=== PATIENT | female | born 1965 | race Caucasian/White ===

== ENCOUNTER → 2021-07-17 13:46 | Outpatient (BNVA) | payer OTHER, SELFPAY | PROVIDERS: PCP Internal Medicine; Visit Provider Physician Assistant | DX: S04.51XA Injury of facial nerve, right side, initial encounter (principal); Y04.2XXA Assault by strike against or bumped into by another person, initial encounter | CPT/HCPCS: 70150; 99203 ==

== ENCOUNTER 2022-06-29 15:19 | Outpatient (REF) | payer BC, SELFPAY ==
--- NOTE | ~2022-06-29 | XR_ITS ---
EXAMINATION: XR CHEST CLINICAL INFORMATION: J30.9 - Allergic rhinitis, unspecified COMPARISON: Chest radiographs 05/23/2012 TECHNIQUE: Frontal view of the chest was obtained. FINDINGS: Clear lungs. No airspace consolidation or groundglass opacity. No hyperinflation. Costophrenic sulci are clear. Heart size normal. Vascularity normal. Hilar and mediastinal contours unremarkable. No acute bony abnormality. XR/XR chest 1V IMPRESSION: Lungs clear.
[2022-06-29 16:38] LABS: MANUAL DIFF FLAG NO
[2022-06-29 17:30] LABS: Basophils Absolute Auto 0.1 X10*3/uL (0.0-0.2); Basophils Percent Auto 0.6 % (0-2); Eosinophils Absolute Auto 0.1 X10*3/uL (0.0-0.4); Eosinophils Percent Auto 1.3 % (0-4); Hematocrit 41.7 % (37.0-47.0); Imm Gran Abs Auto 0.03 X10*3/uL (0.00-0.03); Imm Gran Pct Auto 0.3 % (0.0-0.4); Lymphocytes Absolute Auto 1.9 X10*3/uL (1.2-4.9); Mean Corpuscular HGB Conc 33.6 g/dl (31.0-35.0); Mean Corpuscular Hemoglobin 29.4 pg (27.0-33.0); Mean Corpuscular Volume 87.4 fL (80.0-98.0); Mean Platelet Volume 12.2 fL (9.4-12.3); Monocytes Absolute Auto 0.8 X10*3/uL (0.1-1.2); Monocytes Percent Auto 8.9 % (2-11); Neutrophils Absolute Auto 5.8 x10*3/uL (2.0-8.3); Neutrophils Percent Auto 66.9 % (45-73); Platelet Count 217 X10*3/uL (160-400); Red Blood Count 4.77 X10*6/uL (4.20-5.50); Red Cell Distribution Width 13.4 % (11.0-16.0); White Blood Count 8.7 X10*3/uL (4.8-10.8)
[2022-07-02 15:43] LABS: Immunoglobulin E 26 kU/L (<OR=114)
== END 2022-06-29 15:20 | disposition home or self-care (01) ==
LOC: HO.LAB 15:19
PROVIDERS: PCP Internal Medicine; Visit Provider Internal Medicine
DX: J45.909 Unspecified asthma, uncomplicated (principal)
CPT/HCPCS: 36415; 71045; 82785; 85025

== ENCOUNTER 2022-07-10 15:51 | Outpatient (REF) | payer BC, SELFPAY ==
--- NOTE | 2022-07-10 17:10 | PFT_ITS ---
FLOWS: 1. FEV1 79% of predicted at 2.38 L. 2. FVC 76% of predicted at 2.92 L. 3. FEV1 to FVC ratio 0.81. 4. No bronchodilator response. LUNG VOLUMES: 1. Total lung capacity 86% of predicted at 4.75 L. 2. Residual volume 86% of predicted at 1.75 L. 3. Slow vital capacity 86% of predicted at 3.00 L. 4. Expiratory reserve volume 22% of predicted at 0.4 L. 5. Diffusion capacity is normal. IMPRESSION: No obstructive or restrictive ventilatory defect. No bronchodilator response. Decreased expiratory reserve volume suggests extrathoracic restriction likely secondary to abdominal obesity. Capo Hinds MD AP/MODL / [id number]
== END 2022-07-10 15:52 | disposition home or self-care (01) ==
LOC: HO.RESP 15:51
PROVIDERS: PCP Internal Medicine; Visit Provider Internal Medicine
DX: J45.909 Unspecified asthma, uncomplicated (principal)
CPT/HCPCS: 94060; 94727; 94729

== ENCOUNTER → 2022-08-17 15:54 | Outpatient (BNVA) | payer BC, SELFPAY | PROVIDERS: PCP Internal Medicine; Visit Provider Internal Medicine | DX: J45.909 Unspecified asthma, uncomplicated (principal) ==

== ENCOUNTER 2024-09-24 14:09 | Emergency (ER) | payer BC, SELFPAY ==
--- NOTE | ~2024-09-24 | CT_ITS ---
CLINICAL HISTORY: periumbilical abd pain, nausea CT abdomen and pelvis with IV contrast. COMPARISON: None FINDINGS: Partially visualized lung bases are unremarkable. Cholecystectomy. Liver is enlarged with right lobe measuring 20.6 cm. Hepatic steatosis. Normal spleen. Normal pancreas. Normal adrenal glands. Symmetric renal enhancement. No hydronephrosis. Normal appendix. Mild colonic stool burden. No bowel obstruction. No mesenteric or retroperitoneal lymphadenopathy. Mild aortoiliac atherosclerotic vascular calcifications. Normal appearance of the urinary bladder. Retroverted uterus. No adnexal mass. Moderate lower lumbar spondylosis. No acute fracture or suspicious bone lesion. Tiny fat containing umbilical hernia with fascial defect measuring 0.5 x 0.5 cm. No surrounding inflammatory changes. IMPRESSION: 1. Tiny fat containing hernia with fascial defect measuring 0.5 x 0.5 cm. No surrounding inflammatory changes. 2. Hepatomegaly with hepatic steatosis. 3. No evidence of appendicitis. No bowel obstruction. This document has been electronically signed by: Delvin Smith MD on 09/24/2024 17:11:25
[2024-09-24 14:17] VITALS: BP 135/70; PULSE 96; RESP 18; TEMP 36.5; O2SAT 96; BMI 32.5
--- NOTE | 2024-09-24 14:17 | ED.GENADULT ---
HPI - General Adult General Chief complaint: Abdominal Pain Stated complaint: abd pain Time Seen by Provider: 09/24/24 14:46 Source: patient Mode of arrival: ambulatory Limitations: no limitations History of Present Illness ED Provider: ANITA CHAVEZ PA-C HPI narrative: 58 year old female with pmhx significant for asthma, allergic rhinitis presents to the ED today for evaluation of abdominal pain x 24 hours. She reports pain around her umbilicus radiating to her right abdomen and around to her back that began while seated at her niece's program yesterday. Pain has been a constant 6/10 since onset. No clear exacerbating or relieving factors. Reports taking Tylenol last night without relief. States she is typically nauseous at baseline. No worsening nausea. No vomiting. Reports history of decreased appetite, states she can go a day or 2 without eating. No change to PO intake. Her GI doctor had suspicion for celiac disease so she has since cut out a good majority of her regular foods. She also had recent EDG/ colonoscopy done 2 weeks ago. Reports findings of small hiatal hernia, internal hemorrhoids and diverticulosis without evidence of diverticulitis. Reports normal BMs. Last BM this morning. Denies vomiting, diarrhea, constipation, urinary symptoms, fever/chills. Abdominal surgeries include cholecystectomy and tubal ligation. Related Data Home Medications ?Medication ?Instructions ?Recorded ?Confirmed albuterol sulfate 90 mcg/actuation 2 puff inhalation DAILY 06/29/22 aerosol inhaler atorvastatin 40 mg tablet 40 mg PO DAILY 06/29/22 citalopram 20 mg tablet 30 mg PO DAILY 06/29/22 inhalational spacing device #1 ea 06/29/22 (Aerochamber Plus Flow-Vu) valsartan 320 1 tab PO DAILY 06/29/22 mg-hydrochlorothiazide 25 mg tablet Previous Rx's ?Medication ?Instructions ?Recorded montelukast 10 mg tablet 10 mg PO BEDTIME #30 tabs 05/03/23 Allergies Allergy/AdvReac Type Severity Reaction Status Date / Time morphine [MORPHINE] Allergy Intermediate HIVES Verified 09/24/24 14:20 aspirin [ASPIRIN] Allergy Unknown HIVES Verified 09/24/24 14:20 celecoxib [Celebrex] Allergy Unknown swelling Verified 09/24/24 14:20 of lips/tongue gluten [GLUTEN] Allergy Unknown UNKNOWN Verified 09/24/24 14:20 latex [LATEX] Allergy Unknown HIVES Verified 09/24/24 14:20 pregabalin [From LYRICA] Allergy Unknown SWELLING, Verified 09/24/24 14:20 anaphylaxis Latex Gloves Allergy Unknown hives Uncoded 08/17/22 16:09 Review of Systems Review of Systems: Yes all other systems are reviewed and are negative [facility] Past Medical History Attestation statement: The following information was validated with the patient. Source: old records reviewed and nursing notes reviewed Medical History Allergic rhinitis Asthma Social History Social History Patient Tobacco Use Status: Former Tobacco user Smoked in Last 30 Days: No Use of substances other than those prescribed or required for medical reasons: No Advance Directives: No Advance Directives Information Provided: No Physical Exam ED Vital Signs: Vital Signs - 24 hr 09/24/24 14:17 09/24/24 15:01 09/24/24 16:06 Temperature 97.7 F 98.3 F 98.7 F Pulse Rate 96 91 87 Respiratory Rate 18 14 16 Blood Pressure 135/70 147/75 H 139/71 Pulse Oximetry 96 95 96 Oxygen Delivery Method Room Air Room Air Room Air BMI result Body Mass Index 32.5 Afebrile. Hypertensive to 147/75 mmHg. Not hypoxic General: Well appearing, in no acute distress. Skin: Warm, dry, intact. No rashes or lesions. Head: Normocephalic, atraumatic. EENT: Hearing is intact b/l. Conjunctiva clear. Sclera is anicteric. Neck: Supple without LAD. Cardiac: Chest wall symmetric. RRR. Lungs: Normal respiratory effort without accessory muscle use. CTA bilaterally. Abdomen: +soft, nondistended, mildly tender to palpation of periumbilical region on deep palpation only. no palpable mass. No rebound or guarding. Active bowel sounds x4. Negative McBurney point tenderness. Negative Rovsing sign. No CVAT. Back: No midline spinous or paraspinal tenderness. No step off deformity. Ext: Upper and lower extremities atraumatic, without tenderness, deformity, swelling or erythema Neuro: AOx3. Normal speech. Ambulating with steady gait. Course Course Course Narrative: RME performed by Delia Barnard PA-C. Patient is a 58 year old assigned female at presenting to the emergency department with right sided abdominal pain. Patient states that she has had pain since yesterday and it has not resolved. Detailed physical exam and review of systems are deferred to the public address system operator. Labs and swabs ordered. Patient placed back in the waiting room pending room availability and results. Reevaluation(s) Reevaluation #1: 1552 -- CBC without leukocytosis or left shift. No anemia. H&H stable. Chemistry without acute electrolyte abnormality requiring intervention. No DAVID. Random glucose 170. Liver function appears to be around baseline. Patient tells me that she has a history of chronically elevated liver enzymes. Negative COVID, flu, RSV. Urine showing large amount of leukocyte esterase, over 50 WBCs, no urine bacteria. Patient does not endorse any urinary symptoms. will await culture to treat for UTI. > given tenderness around periumbilical region, will obtain imaging to further investigate etiology of pain. Patient reports anxiety surrounding CT scan. Valium ordered - patient agreeable. 0 -- CT abdomen/pelvis showing tiny fat containing umbilical hernia with fascial defect measuring 0.5 x 0.5 cm without surrounding inflammatory changes. Hepatomegaly with hepatic steatosis consistent with labs. No evidence of appendicitis, no bowel obstruction. > discussed workup results with patient. Will provide her with a referral to General surgery. She is agreeable. Advised Tylenol/Motrin at home for discomfort. Patient has remained stable throughout ED visit today. Discussed worrisome signs and symptoms and when to return to the ED. All questions answered at this time. Patient is agreeable with disposition and stable for discharge. Medications Administered Discontinued Medications Generic Name Dose Route Start Last Admin Trade Name Freq PRN Reason Stop Dose Admin Diazepam 5 mg 09/24/24 15:32 09/24/24 16:18 Diazepam 5 Mg Tablet PO 09/24/24 15:33 5 mg ONCE ONE Administration Sodium Chloride 1,000 mls @ 999 mls/hr 09/24/24 15:45 09/24/24 16:18 Ns IV 09/24/24 16:45 999 mls/hr .Q1H1M DOMINICK Administration Iohexol 100 ml 09/24/24 16:01 09/24/24 16:02 Iohexol 350 Mg/Ml 100 Ml Infus..Btl IV 09/24/24 16:02 85 ml ONCE ONE Administration Ondansetron HCl 4 mg 09/24/24 15:32 09/24/24 16:18 Ondansetron Hcl 4 Mg/2 Ml Vial IVPUSH 09/24/24 15:33 4 mg ONCE ONE Administration Medical Decision Making Medical Decision Making [facility] Narrative: 58 year old female with pmhx significant for asthma, allergic rhinitis presents to the ED today for evaluation of abdominal pain x 24 hours. she is well appearing, lying comfortably on the exam bed. in NAD. on exam, abdomen is soft, nondistended, mildly tender to palpation of periumbilical region on deep palpation only. no palpable mass. No rebound or guarding. Active bowel sounds x4. Negative McBurney point tenderness. Negative Rovsing sign. No CVAT. Differential diagnoses: appendicitis, diverticulitis, diverticulosis, colitis, UTI, constipation Abdominal exam without peritoneal signs. No evidence of acute abdomen at this time. Well appearing. Low suspicion for acute hepatobiliary disease (including acute cholecystitis), acute infectious processes (pneumonia, hepatitis, pyelonephritis, PID, TOA), vascular catastrophe, bowel obstruction or viscus perforation, ovarian cyst/ rupture/ torsion, ectopic. Presentation not consistent with other acute, emergent causes of abdominal pain at this time. Plan: labs, UA, CT AP, pain control, fluids, serial reassessment Differential Diagnosis Differential Diagnoses: The differential diagnosis associated with the presentation includes as above. Admission/Observation Not indicated Lab Data [facility] Lab Attestation statement: I reviewed the patient's lab results. as above. 09/24/24 14:31 09/24/24 14:31 Labs: Lab Results 09/24/24 09/24/24 Range/Units 14:31 14:32 WBC 7.9 (4.8-10.8) X10*3/uL RBC 4.76 (4.20-5.50) X10*6/uL Hgb 14.2 (12.0-16.0) g/dl Hct 41.0 (37.0-47.0) % MCV 86.1 (80.0-98.0) fL MCH 29.8 (27.0-33.0) pg MCHC 34.6 (31.0-35.0) g/dl RDW 13.6 (11.0-16.0) % Plt Count 195 (160-400) X10*3/uL MPV 11.7 (9.4-12.3) fL Immature Gran % (Auto) 0.4 (0.0-0.4) % Neut % (Auto) 61.4 (45-73) % Lymph % (Auto) 29.4 (20-40) % Grayson % (Auto) 6.6 (2-11) % Eos % (Auto) 1.3 (0-4) % Baso % (Auto) 0.9 (0-2) % Lymph # (Auto) 2.3 (1.2-4.9) X10*3/uL Grayson # (Auto) 0.5 (0.1-1.2) X10*3/uL Eos # (Auto) 0.1 (0.0-0.4) X10*3/uL Baso # (Auto) 0.1 (0.0-0.2) X10*3/uL Abs Immat Gran (auto) 0.03 (0.00-0.03) X10*3/uL Absolute Neuts (auto) 4.9 (2.0-8.3) x10*3/uL Absolute Nucleated RBC 0.000 (0.0-0.012) X10*3/uL Nucleated RBC % (auto) 0.0 (0.0-0.2) /100WBC Sodium 143 (135-145) mmol/L Potassium 3.7 (3.3-5.1) mmol/L Chloride 102 (96-108) mmol/L Carbon Dioxide 32 H (22-29) mmol/L Anion Gap 13 (12-20) BUN 12 (9-16) mg/dL Creatinine 0.72 (0.5-1.4) mg/dL Estim Creat Clear Calc 102.7 Estimated GFR > 60 Random Glucose 170 H (60-115) mg/dL Calcium 9.8 (8.4-10.2) mg/dL Magnesium 2.1 (1.6-2.6) mg/dL Total Bilirubin 0.4 (0.0-1.0) mg/dL AST 78 H (5-31) U/L ALT 108 H (0-31) U/L Alkaline Phosphatase 64 (39-117) U/L Total Protein 7.2 (6.5-8.0) g/dL Albumin 4.3 (3.5-5.0) g/dL Lipase 45 (8-78) U/L Urine Color Yellow Urine Appearance Turbid Urine pH 8.0 (5.0-9.0) Ur Specific Nova 1.015 (1.005-1.025) Urine Protein Trace (Neg-Trace) mg/dL Urine Glucose (UA) Negative (Negative) mg/dL Urine Ketones Negative (Negative) mg/dL Urine Blood Negative (Negative) Urine Nitrite Negative (Negative) Ur Leukocyte Esterase Large (3+) H (Negative) Urine RBC 0-2 (0-2) /HPF Urine WBC >50 H (0-5) /HPF Ur Squamous Epith Cells 3-5 (0-2) /HPF Urine Bacteria None Seen (None Seen) Hyaline Casts 0-2 (0-2) /LPF Influenza Type A (PCR) NEGATIVE (Negative) Influenza Type B (PCR) NEGATIVE (Negative) RSV RNA Qual (PCR) NEGATIVE (Negative) SARS-CoV-2 RNA (RT-PCR) NEGATIVE (Negative) Independent Interpretation I performed an independent interpretation of an: CT Scan Interpretation: CT abdomen/pelvis without bowel obstruction Radiology Impression Discussion of test interpretation with radiology: I have reviewed the radiologist's reading. Radiologist Impression: Procedure(s): CT abdomen pelvis w IV con Accession Number(s): [id number] cc: LO BAXTER MD; Anita Chavez~ Report Number: [id number]: Total DLP = 698.00 mGy-cm CLINICAL HISTORY: periumbilical abd pain, nausea CT abdomen and pelvis with IV contrast. COMPARISON: None FINDINGS: Partially visualized lung bases are unremarkable. Cholecystectomy. Liver is enlarged with right lobe measuring 20.6 cm. Hepatic steatosis. Normal spleen. Normal pancreas. Normal adrenal glands. Symmetric renal enhancement. No hydronephrosis. Normal appendix. Mild colonic stool burden. No bowel obstruction. No mesenteric or retroperitoneal lymphadenopathy. Mild aortoiliac atherosclerotic vascular calcifications. Normal appearance of the urinary bladder. Retroverted uterus. No adnexal mass. Moderate lower lumbar spondylosis. No acute fracture or suspicious bone lesion. Tiny fat containing umbilical hernia with fascial defect measuring 0.5 x 0.5 cm. No surrounding inflammatory changes. IMPRESSION: 1. Tiny fat containing hernia with fascial defect measuring 0.5 x 0.5 cm. No surrounding inflammatory changes. 2. Hepatomegaly with hepatic steatosis. 3. No evidence of appendicitis. No bowel obstruction. This document has been electronically signed by: Delvin Smith MD on 09/24/2024 17:11:25 External Record Review External record reviewed: Inpatient record Prescription Management I considered prescription management with: Pain Medication Social Determinants Patient?s care significantly limited by Social Determinants of Health including: Other Social Determinant of Health Critical Care Time Critical Care Time Critical Care Time: No Discharge Plan Discharge Clinical Impression: Umbilical hernia Patient Disposition: Home, Self-Care Instructions: Umbilical Hernia (ED) Additional Instructions: You were evaluated in the ED today for abdominal pain. Your blood work is reassuring. The CT scan of your abdomen shows a small umbilical hernia in the area of your discomfort: IMPRESSION: 1. Tiny fat containing hernia with fascial defect measuring 0.5 x 0.5 cm. No surrounding inflammatory changes. 2. Hepatomegaly with hepatic steatosis. 3. No evidence of appendicitis. No bowel obstruction. You may take Motrin and Tylenol at home for pain/discomfort. I am giving him a referral to General surgery for outpatient follow-up. Call them to establish care. They will not call you. As discussed, return with any new or worsening symptoms such as intractable pain, vomiting. In the case of an emergency call 911. Prescriptions: No Action montelukast 10 mg tablet 10 mg PO BEDTIME Qty: 30 3RF atorvastatin 40 mg tablet 40 mg PO DAILY citalopram 20 mg tablet 30 mg PO DAILY valsartan-hydrochlorothiazide 320-25 mg tablet 1 tab PO DAILY (DME) Aerochamber Plus Flow-Vu Spacer See Rx Instructions .ROUTE DIRECTED Qty: 1 Rx Instructions: As directed albuterol sulfate 90 mcg/actuation HFA aerosol inhaler 2 puff inhalation DAILY Referrals: [facility] [place] General Surgeons [Provider Group] - 3 days (Tiny fat containing hernia with fascial defect measuring 0.5 x 0.5 cm. No surrounding inflammatory changes.) Stand Alone Forms: Work/School Release Interventions: ED Discharge Assessment Last Done: 09/24/24 17:48 Discharge Date/Time: 09/24/24 17:49 Print Language: Greenlandic
--- NOTE | 2024-09-24 14:28 | PC.NURSE ---
pt incontinent of urine - pericare performed. new brief placed.
[2024-09-24 14:48] LABS: MANUAL DIFF FLAG NO
[2024-09-24 14:50] LABS: Basophils Absolute Auto 0.1 X10*3/uL (0.0-0.2); Basophils Percent Auto 0.9 % (0-2); Eosinophils Absolute Auto 0.1 X10*3/uL (0.0-0.4); Eosinophils Percent Auto 1.3 % (0-4); Hemoglobin 14.2 g/dl (12.0-16.0); Imm Gran Abs Auto 0.03 X10*3/uL (0.00-0.03); Imm Gran Pct Auto 0.4 % (0.0-0.4); Lymphocytes Absolute Auto 2.3 X10*3/uL (1.2-4.9); Lymphocytes Percent Auto 29.4 % (20-40); Mean Corpuscular HGB Conc 34.6 g/dl (31.0-35.0); Mean Corpuscular Hemoglobin 29.8 pg (27.0-33.0); Mean Corpuscular Volume 86.1 fL (80.0-98.0); Mean Platelet Volume 11.7 fL (9.4-12.3); Monocytes Absolute Auto 0.5 X10*3/uL (0.1-1.2); Monocytes Percent Auto 6.6 % (2-11); Neutrophils Absolute Auto 4.9 x10*3/uL (2.0-8.3); Neutrophils Percent Auto 61.4 % (45-73); Platelet Count 195 X10*3/uL (160-400); Red Blood Count 4.76 X10*6/uL (4.20-5.50); Red Cell Distribution Width 13.6 % (11.0-16.0); White Blood Count 7.9 X10*3/uL (4.8-10.8)
[2024-09-24 14:51] LABS: Appearance Urine Turbid; Color Urine Yellow; Glucose Urine UA Negative (Negative); Leukocyte Esterase Urine Large (3+) (Negative); Nitrite Urine Negative (Negative); Specific Gravity - Urine 1.015 (1.005-1.025); UMIC TRIGGER UACC YES; Urine Blood Negative (Negative); Urine Ketones Negative (Negative); Urine Protein Trace mg/dL (Neg-Trace)
[2024-09-24 15:01] VITALS: BP 147/75; PULSE 91; RESP 14; TEMP 36.8; O2SAT 95
[2024-09-24 15:04] LABS: Bacteria Urine None Seen (None Seen); Hyaline Casts Urine 0-2 /LPF (0-2); RBC Urine 0-2 /HPF (0-2); UACC Culture Trigger YES; WBC Urine >50 /HPF (0-5)
--- NOTE | 2024-09-24 15:06 | PC.NURSE ---
Patient A&O x 4. Paptient presents to ED from home c/o RLQ abdominal pain. Pain rated 6/10. Patient nauseous but no V/D. Abdomen pain started yesterday, + Bowel sounds. Abdomen soft, slightly tender in RLQ. Patient reports last BM this morning, no blood noted. Denies urinary symptoms. Denies fever/chills, Denies injury. VSS and up to date. Blood and urine collected in triage and sent to lab. Play of care on going.
[2024-09-24 15:07] LABS: Alanine Aminotransferase 108 U/L (0-31); Albumin Level 4.3 g/dL (3.5-5.0); Anion Gap 13 (12-20); Aspartate Amino Transferase 78 U/L (5-31); Bilirubin Total 0.4 mg/dL (0.0-1.0); Blood Urea Nitrogen 12 mg/dL (9-16); Calcium 9.8 mg/dL (8.4-10.2); Carbon Dioxide 32 mmol/L (22-29); Chloride 102 mmol/L (96-108); Creatinine Clr Calc Pharmacy 102.7; Estimated Glomerular Filt Rate > 60; Glucose Random 170 mg/dL (60-115); Magnesium 2.1 mg/dL (1.6-2.6); Potassium 3.7 mmol/L (3.3-5.1); Sodium 143 mmol/L (135-145); Total Protein 7.2 g/dL (6.5-8.0)
--- NOTE | 2024-09-24 15:12 | PC.NURSE ---
report given to VEE long at this time. pt [place] [facility] [place]
--- OUTSIDE RECORDS SUMMARY | 2024-09-24 15:17 | XMS_ITS | Clinical Summary ---
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 retroflexion. The examined duodenum was normal. Biopsies for histology were taken with a cold forceps for evaluation of celiac disease. Procedure Code(s): --- Professional --- 42333, Esophagogastroduodenoscopy, flexible, transoral; with biopsy, single or multiple Diagnosis Code(s): --- Professional --- K44.9, Diaphragmatic hernia without obstruction or gangrene CPT copyright 2020 [employer]. All rights reserved. The codes documented in this report are preliminary and upon kosher sealer reviewmay be revised to meet current compliance requirements. Latoya Boss MD 09/11/2024 8:49:35 AM This report has been signed electronically.Latoya Boss MD Number of Addenda: 0 Note Initiated On: 09/11/2024 8:38 AM Scope In: Scope Out: Endoscopy Department at [facility] - [address] [place] [id number] IMPRESSION: - Small hiatal hernia. - Normal mucosa was found in the entireesophagus. - Normal stomach. Biopsied. - Normal examined duodenum. Biopsied. Recommendation: - Await pathology results. us Jm Javier MD GI~PROCEDURE ORDERABLES Fin al Result * Tissue exam (09/11/2024 8:45 AM EDT) Final Diagnosis A. Small Intestine, Duodenum, biopsies: - Duodenal mucosa with preserved villi and no specific pathologic changes. - Negative for increased intraepithelial lymphocytes. B. Stomach, gastric biopsies: - Gastric antral mucosa with mild reactive changes. - Gastric oxyntic mucosa with no specific pathologic changes. - No Helicobacter pylori organisms are morphologically identified. 09/12/2024 12:45 PM EDT [facility] Gross Description A. Small Intestine, Duodenum, biopsies: Labeled duodenum biopsy . Received in formalin are five irregular burt mucosal tissue fragments, ranging from 0.1 cm to 0.3 cm in greatest dimension, which are wrapped in paper and submitted in toto in one cassette, five pieces, multiple levels on one slide. B. Stomach, gastric biopsies: Labeled stomach gastric . Received in formalin are four irregular burt mucosal tissue fragments, each measuring approximately 0.3 cm in greatest dimension, which are wrapped in paper and submitted in toto in one cassette, four pieces, multiple levels on one slide. VIKTOR 09/12/2024 12:45 PM EDT [facility] Disclaimer Unless otherwise specified, all tissue is 10% NB formalin fixed and paraffin embedded. 09/12/2024 12:45 PM EDT [facility] Tissue Stomach structure / Unknown 09/11/2024 8:45 AM EDT 09/11/2024 10:08 AM EDT Tissue specimen (specimen) Stomach structure / Unknown 09/11/2024 8:45 AM EDT 09/11/2024 10:08 AM EDT Latoya Boss MD LAB PATHOLOGY ORDERABLES Final Result [facility] [address] [place] [address], from Last [address] [facility] Care Teams Rn Cardiovascular Relationship Specialty Start Date End Date Tarik Roche MD [address] PCP - General Internal Medicine 06/19/24
--- OUTSIDE RECORDS SUMMARY | 2024-09-24 15:17 | XMS_ITS | Encounter Summary ---
Author Organization [facility] Address [address] [place] [address] Care Team Providers Care Buggy Runner Name Role Phone Tarik Roche MD Primary Care Provider [phone] Encounter Details Date Type Department Care Team ([facility] st Contact Info) Description 08/23/2024 Telephone Gastroenterology - [address] [phone] Perry Javier MD [address] [address] Social History Tobacco Use Types Packs/Day Years Used Date Smoking Tobacco: Former Cigarettes Smokeless Tobacco: Former Alcohol Use Standard Drinks/Week Comments Not Currently 0 (1 standard drink = 0.6 oz pur e alcohol) Interpersonal Safety Answer Date Record ed Physical Abuse 09/11/2024 Verbal Abuse 09/11/2024 Comments Unknown Sex and Gender Information Value Date Recorded Sex Assigned at Not on file Legal Sex Female 5:02 PM EST Gender Identity Not on file Sexual Orientation Not on file documented as of this encounter Progress Notes * Leah Lopez - 08/23/2024 3:11 PM EDT Pt was seen in the office today with no insurance referral and is now scheduled for c&e. Fax sent to pcp to obtain insurance referral. Chiquita Aquino 1965 [facility]. PT SEEN IN THE OFFICE TODAY 08/23/2024 AND SCHEDULED FOR COLONOSCOPY 08/30/24 130PM PERRY JAVIER. documented in this encounter Plan of Treatment Upcoming Encounters Date Type Department Care Team (Late st Contact Info) Description 09/25/2024 3:30 PM EDT Office Visit Gastroenterology - [address] [place] [address] Sherley Cruz PA [address] [place] [address] documented as of this encounter Visit Diagnoses Not on filedocumented in this encounter Care Teams Buggy Runner Relationship Specialty Start Date End Date Tarik Roche MD [address] [place], [place] PCP - General Internal Medicine 06/19/24 documented as of this encounter
--- OUTSIDE RECORDS SUMMARY | 2024-09-24 15:17 | XMS_ITS | Data Portability ---
Author Organization [facility] Address [address] [place] [address] Care Team Providers Care Labor Economist Name Role Phone ZELALEM SMITH Referring Provider LO BAXTER Primary Care Provider Assessment Encounter Date Assessment Date Assessment LastModified by Organization Details LastModified Time 12/29/2017 12/29/2017 Chiquita Aquino is a 52 year old woman with low back pain radiating into the left lower extremity. On exam ,she has pain on flexion. Straight leg raising test is positive on the left. Decreased strength in left EHL. MRI Lumbar spine shows discogenic degenerative changes at L5-S1 with slight retrolisthesis at this level and a small central disc protrusion with minimal concentric disc osteophyte complex and mild facet arthrosis bilaterally, with postoperative changes on the left. No significant canal or neural foraminal compromise. Minimal disc bulging at L4-5 with a small right lateral enhancing annular fissure. Otherwise unremarkable exam. Trial of Lumbar epidural steroid injections under fluoroscopic guidance was recommended. The risks and benefits of the procedure were discussed in detail. She wishes to proceed. An appointment has been booked for the same. She needs a pick up driver on the day of the procedure. [email or web address] Not available 12/29/2017 11:40:30 01/25/2018 01/25/2018 Chiquita Aquino is a 52 year old woman with low back pain radiating into the left lower extremity. On exam ,she has pain on flexion. Straight leg raising test is positive on the left. Decreased strength in left EHL. MRI Lumbar spine shows discogenic degenerative changes at L5-S1 with slight retrolisthesis at this level and a small central disc protrusion with minimal concentric disc osteophyte complex and mild facet arthrosis bilaterally, with postoperative changes on the left. No significant canal or neural foraminal compromise. Minimal disc bulging at L4-5 with a small right lateral enhancing annular fissure. She is here for a trial of Lumbar epidural steroid injections under fluoroscopic guidance . The risks and benefits of the procedure were discussed in detail. She wishes to proceed. She needs to follow up in four weeks. [email or web address] Not available 01/25/2018 09:00:47 02/24/2018 02/24/2018 Chiquita Aquino is a 52 year old woman with low back pain radiating into the left lower extremity. She is here for a follow up after a lumbar epidural steroid injection under fluoroscopic guidance. She reports 80-90% pain benefit for three weeks with a slow return of pain. On exam ,she has pain on flexion. Straight leg raising test is positive on the left. Decreased strength in left EHL. MRI Lumbar spine shows discogenic degenerative changes at L5-S1 with slight retrolisthesis at this level and a small central disc protrusion with minimal concentric disc osteophyte complex and mild facet arthrosis bilaterally, with postoperative changes on the left. No significant canal or neural foraminal compromise. Minimal disc bulging at L4-5 with a small right lateral enhancing annular fissure. Otherwise unremarkable exam. Repeat Lumbar epidural steroid injections under fluoroscopic guidance was recommended. The risks and benefits of the procedure were discussed in detail. She wishes to proceed. An appointment has been booked for the same. She needs a pick up driver on the day of the procedure. tmanikantan Not available 02/25/2018 10:59:01 03/29/2018 03/29/2018 Chiquita Aquino is a 52 year old woman with low back pain radiating into the left lower extremity. On exam ,she has pain on flexion. Straight leg raising test is positive on the left. Decreased strength in left EHL. MRI Lumbar spine shows discogenic degenerative changes at L5-S1 with slight retrolisthesis at this level and a small central disc protrusion with minimal concentric disc osteophyte complex and mild facet arthrosis bilaterally, with postoperative changes on the left. No significant canal or neural foraminal compromise. Minimal disc bulging at L4-5 with a small right lateral enhancing annular fissure. She is here for a repeat Lumbar epidural steroid injections under fluoroscopic guidance . The risks and benefits of the procedure were discussed in detail. She wishes to proceed. She will follow up as needed. [email or web address] Not available 03/31/2018 11:33:52 Plan of Treatment Reminders Order Date Submit Date Provider Last Modified By Organization Details Last Modified Time Details Appointments None record ed. Lab None record ed. Referral None record ed. Procedures None record ed. Surgeries None record ed. Imaging None record ed. Medication Orders None record ed. Patient TargetsNo targets recorded. Patient Instructions Encounter Date Encounter Id Patient Instructions Last Modified By Organization Details Last Modified Time 01/25/2018 [id number] She was advised against bed rest lasting longer than four days and to continue activities as tolerated. [email or web address] Not available 01/25/2018 09:00:05 02/24/2018 [id number] She was advised against bed rest lasting longer than four days and to continue activities as tolerated. [email or web address] Not available 02/25/2018 10:58:38 03/29/2018 [id number] She was advised against bed rest lasting longer than four days and to continue activities as tolerated. [email or web address] Not available 03/31/2018 11:31:56 Reason for Referral None Reported. Problems Name Problem SNOMED Code Status Onset Date Resolution Date Notes Provider Name and Address Organization Details Recorded Time Lumbar post-laminecto my syndrome [id number] Elmer mosquera MD [address] , [address], [facility] [place], [address], [place] [facility] 8 08:47:44 Lumbar radiculopathy 170167406 Elmer mosquera MD [address] , [address], [place], [address], [place] [facility] 8 08:47:59 Lumbosacral spondylosis without myelopathy [id number] Elmer mosquera MD [address] , [address], [place], [address], [place] [facility] 8 08:48:13 Degeneration of lumbar intervertebral disc [id number] Elmer mosquera MD [address] , [address], [facility] [place], [address], [place] [facility] 8 08:48:22 Problem Notes None recorded. Procedures Surgical History Date Name Laterality Status Provider Name and Address Organization Details Recorded Time 03/29/20 18 Lumbar Epidural steroid injection under fluoroscopic guidance completed Madan Clinton MD [address] , [address], [place], [address], [place] [facility] 03/31/2018 11:32:59 01/26/20 18 Lumbar Epidural steroid injection under fluoroscopic guidance completed Madan Clinton MD [address] , [address], [place], [address], [place] [facility] 01/25/2018 08:59:42 Back Surgery completed Charletteserina Borja [place] [facility] 12/29/2017 09:49:05 Cholecystectomy completed Charlette Borja [place] [facility] 12/29/2017 09:49:22 Other completed Charlette Perezzier [place] [facility] 12/29/2017 09:49:50 Imaging Results None recorded. Procedure Notes None recorded. Medical Equipment None Reported. Allergies Allergen ID Allergen Name Allergen Category Reaction Reaction Severity Criticality Documentation Date Start Date Code Code System Note Provider Name and Address Organization Details Recorded Time 15283 latex environme nt,medica tion hives Not available Not available 12/29/2017 06319 91 RxNorm Charlette Perezmark mccarty, [place] [facility] 8 09:39:46 55805 aspirin medicatio n hives Not available Not available 12/29/2017 1191 RxNorm Charlette Borjamark mccarty, [place] [facility] 8 09:39:59 99106 morphine medicatio n hives Not available Not available 12/29/2017 7052 RxNorm Hot flash Charlette Jonh mccarty, [place] [facility] 8 09:40:54 16364 Lyrica medicatio n facial swelling Not available Not available 12/29/2017 46558 1 RxNorm Charlette Perezzier lul, [place] [facility] 8 09:41:06 Medications Name Sig Start Date Stop Date Status Note LastModified by Organization Details LastModified Time atorvastat in 40 mg tablet active Not Available Not Available Not Available prednisone 10 mg tablet 12/29 completed Not Available Not Available Not Available tizanidine 4 mg tablet 03/29 completed Not Available Not Available Not Available metoprolol succinate ER 100 mg tablet,ext ended release 24 hr 2 tabs daily active Not Available Not Available No t Available acetaminop hen 300 mg-codeine 30 mg tablet 12/29 completed Not Available Not Available Not Available chlorthali done 25 mg tablet active Not Available Not Available Not Available Zantac 150 mg tablet Take 1 tablet twice a day by oral route. active as needed Not Available Not Available Not Available lorazepam 2 mg tablet active Not Available Not Available Not Available gabapentin 300 mg capsule 1tab @ bedtime 03/29 completed Not Available Not Available Not Available lorazepam 1 mg tablet 12/29 completed Not Available Not Available Not Available cyclobenza deja 5 mg tablet 12/29 completed Not Available Not Available Not Available ProAir HFA 90 mcg/actuat ion aerosol inhaler active Not Available Not Available Not Available EpiPen 2-Ray 0.3 mg/0.3 mL injection, auto-injec tor active Not Available Not Available Not Available Fluvirin 0170-5233 (PF) 45 mcg(15 mcg x3)/0.5 mL intramuscu lar syringe ADM 0.5ML IM UTD 12/29 completed Not Available Not Available Not Available cannabidio l (CBD) oral oil Take by oral route. active Not Available Not Available No t Available Vitals Date Recorded Heart rate Oxygen saturation Oxygen saturation in Arterial blood by Pulse oximetry Body height Body mass index (BMI) Body weight Systolic blood pressure Diastolic blood pressure Provider Name and Address Organization Details Last Updated DateTime 8 59 /min 98 % 98 % 170.18 cm 29.3 kg/m2 59724.7 7 g 139 mm[Hg] 77 mm[Hg] Charlette Garcia [facility] 8 09:37:56 Date Recorded Body height Oxygen saturation Oxygen saturation in Arterial blood by Pulse oximetry Heart rate Systolic blood pressure Diastolic blood pressure Provider Name and Address Organization Details Last Updated DateTime 8 170.18 cm 98 % 98 % 84 /min 131 mm[Hg] 86 mm[Hg] Charlette aGrcia [facility] 8 08:36:11 Date Recorded Body height Heart rate Oxygen saturation Oxygen saturation in Arterial blood by Pulse oximetry Systolic blood pressure Diastolic blood pressure Provider Name and Address Organization Details Last Updated DateTime 8 170.18 cm 64 /min 96 % 96 % 148 mm[Hg] 77 mm[Hg] Madan mosquera MD [facility] , [address], [place], [address], [place] [facility] 8 15:30:32 Date Recorded Pain severity - 0-10 verbal numeric rating [Score] - Reported Provider Name and Address Organization Details Last Updated DateTime 02/24/2018 4 Not Available [facility] 8 05:02:19 Date Recorded Body height Heart rate Oxygen saturation Oxygen saturation in Arterial blood by Pulse oximetry Systolic blood pressure Diastolic blood pressure Provider Name and Address Organization Details Last Updated DateTime 8 170.18 cm 70 /min 97 % 97 % 170 mm[Hg] 82 mm[Hg] Charlette Perezzier [place] [facility] 8 15:47:45 Social History Question Answer Notes LastModified by Organizat ion Details LastModified Time Tobacco Smoking Status Never Smoker Quit x 18 years Not Available [facility] 03/01/2020 03:16:11 What Is Your Level Of Alcohol Consumption? 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 No [id number] Information not available 03/01/2020 Education 4 Year College Bachelors [email or web address] Information not available 12/29/2017 What Is Your Occupation? Teacher [id number] Information not available 03/01/2020 Live Alone Or With Others? With Others And Son Information not available 12/29/2017 Marital Status Informatio n not available 12/29/2017 What Was The Date Of Your Most Recent Tobacco Screening? 03/31/2018 [id number] Information not available 03/01/2020 How Many Years Have You Smoked Tobacco? 10 [id number] Information not available 03/01/2020 Sex: Unknown Functional Status None recorded. Mental Status None recorded. Family History Relationship Description Onset Age of this Age Resolved Age Notes LastModified by Organization Details LastModified Time Father Hypertensive disorder [email or web address] Not available 2017 09:47:01 Father Malignant neoplastic disease [email or web address] Not available 2017 09:47:13 Mother Hypertensive disorder [email or web address] Not available 2017 09:47:01 Mother Malignant neoplastic disease [email or web address] Not available 2017 09:47:13 Medical History Condition Response Arthritis Y Hypertension Y Asthma Y High Cholesterol Y Gynecological HistoryNo gynecological history recorded. Obstetrics History GPAL:G 0 P 0 0 0 0 Past Encounters Encounter ID Performer Location Encounter Start Date Encounter Closed Date Diagnosis/Indication Diagnosis SNOMED-CT Code Diagnosis ICD10 Code Diagnosis Note [id number] Madan Clinton MD PAIN OFFICE [address] [place] [address] 12/29/2017 09:15:52 12/29/2017 12:06:38 Lumbar radiculopathy 512462965 M54.16 Lumbar post-laminectomy syndrome 075090101 M96.1 Degenerati on of lumbar intervertebral disc 74928677 M51.36 Lumbosacra l spondylosis without myelopathy 76127995 M47.817 [id number] Madan Clinton MD PAIN OFFICE [address] [place] [address] 01/25/2018 08:09:44 01/25/2018 09:27:21 Lumbar radiculopathy 959795578 M54.16 Lumbar post-laminectomy syndrome 299428242 M96.1 Degenerati on of lumbar intervertebral disc 76489732 M51.36 Lumbosacra l spondylosis without myelopathy 95244245 M47.817 [id number] Madan Clinton MD PAIN OFFICE [address] [place] [address] 02/24/2018 15:17:11 02/25/2018 10:59:49 Lumbar radiculopathy 614779775 M54.16 Lumbar post-laminectomy syndrome 649923276 M96.1 Degenerati on of lumbar intervertebral disc 85355652 M51.36 Lumbosacra l spondylosis without myelopathy 48342610 M47.817 [id number] Madan Clinton MD PAIN OFFICE [address] [place] [address] 03/29/2018 15:39:02 03/31/2018 11:36:35 Lumbar radiculopathy 961522671 M54.16 Lumbar post-laminectomy syndrome 578011549 M96.1 Degenerati on of lumbar intervertebral disc 69794853 M51.36 Lumbosacra l spondylosis without myelopathy 94785477 M47.817 Health Concerns Section Related Observation LastModified by Organization Detai ls LastModified Time None Recorded Concern Status LastModified by Organization Details LastModified Time None Recorded Advance Directives Directive None Recorded Payers Encounter Date Sequence Insurance Name Policy Number Policy Maurice Covered Member ID Maurice Member ID Guarantor Name 12/29/2017 1 [facility] [id number] Chiquita Aquino [id number] 1 Chiquita Aquino 01/25/2018 1 [facility] [id number] Chiquita Aquino [id number] Chiquita Aquino 02/24/2018 1 [facility] [id number] Chiquita Aquino [id number] Chiquita Aquino 03/29/2018 1 [facility] [id number] Chiquita Aquino [id number] Chiquita Aquino Notes Date Note Type Note Provider Name and Address Organization Details Recorded Time 12/29/2017 text/html Chiquita Aquino is a 52 year old woman with complaints of low back pain radiating into left lower extremity. She has history of chronic low back pain. She is S/P left L5-S1 foraminotomy in 2009. She has been having constant pain in her left lower extremity for the past 4 months and buring in her right leg for the past 3 weeks . 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 She describes the pain as a shooting pain , sharp from her left buttock region to the left leg with numbness, tingling and weakness in her left lower extremity. Current pain level is 5-10/10. Pain is aggravated by standing and walking . Pain is relieved a little with application of heat. She is unable to sleep due to positioning and awakens multiple times at night due to pain. She has no history of bladder or bowel incontinence.She has trialed physical therapy with some pain benefit. She had two courses of medrol dose pack with some pain benefit. She had an injection prior to her back surgery and had a vasovagal episode and could not complete the procedure. MRI Lumbar spine shows discogenic degenerative changes at L5-S1 with slight retrolisthesis at this level and a small central disc protrusion with minimal concentric disc osteophyte complex and mild facet arthrosis bilaterally, with postoperative changes on the left. No significant canal or neural foraminal compromise. Minimal disc bulging at L4-5 with a small right lateral enhancing annular fissure. Otherwise unremarkable exam. Madan Clinton MD [address] [facility] , [address], [place], [address], [place] [facility] 01/05/2018 14:14:58 01/25/2018 text/html She is here for a trial of lumbar epidural steroid injection under fluoroscopic guidance. Madan Clinton MD [address] [facility] , [address], [place], [address], [place] [facility] 01/31/2018 08:40:09 02/24/2018 text/html She is here for a follow up after a lumbar epidural steroid injection under fluoroscopic guidance. She reports 80-90% pain benefit for three weeks with a slow return of pain . Pain is not yet back to baseline. She states after the injection, she was able to do things such as being on the floor with her students and doing yoga and other activities. She has no history of bladder or bowel incontinence. Madan Clinton MD [address] [facility] , [address], [place], [address], [place] [facility] 03/10/2018 10:23:49 03/29/2018 text/html She is here for a lumbar epidural steroid injection under fluoroscopic guidance. Madan Clinton MD [address] [facility] , [address], [place], [address], [place] [facility] 04/02/2018 13:02:06 OBGyn Episode No OBEpisode recorded.
--- OUTSIDE RECORDS SUMMARY | 2024-09-24 15:18 | XMS_ITS | Data Portability ---
Author Organization [facility], Main Office Address [address] [facility] [address] [facility] [place] [address] Care Team Providers Care Chart Computer Name Role Phone LO ROCHE Primary Care Provider LESLIE SANTIAGO Referring Provider [phone] PERRY KAMARA Masonry Installer [phone] [facility] Referring Provider [phone] JARROD GARCIA Referring Provider [phone] ZELALEM SMITH Referring Provider [phone] SERGIO SIMON Referring Provider [phone] RYAN LEONE Referring Provider [phone] KIRBY PETTIT Orthopedic Surgeon [phone] ALCON HINDS Referring Provider [phone] [facility] Referring Provider [phone] Assessment No assessment recorded. Plan of Treatment Reminders Order Date Submit Date Provider Last Modified By Organization Details Last Modified Time Details Appointments None recor ded. Lab TSH + free T4, serum 2024 025 [facility] (Centralized Electronic Ordering - All Locations), Patient Can Go To The Location Of Their Choice, [id number] 5 06:08:11 CBC w/ auto diff 2024 025 [facility] (Centralized Electronic Ordering - All Locations), Patient Can Go To The Location Of Their Choice, [id number] 5 06:08:13 CMP, serum or plasm a 2024 025 [facility] (Centralized Electronic Ordering - All Locations), Patient Can Go To The Location Of Their Choice, [id number] 06:08:13 lipid panel , serum 2023 024 [facility] (Centralized Electronic Ordering - All Locations), Patient Can Go To The Location Of Their Choice, [address] 06:08:15 nonin vasiv e color ectal cance r DNA + occul t blood scree alejandro, QL, stool 2023 024 [email or web address] [facility] (Cologuard Orders Only), [address], [address], [place], [address], 12:46:45 gluco se, finge rstic k, blood 2023 024 [email or web address] In-Office Order, Internal Use Only DO Not Attach Compendium DO Not Attach Compendium, Do Not Delete/merge, 14:38:13 hemog lobin A1C, finge rstic k 2023 024 LORRAINE In-Office Order, Internal Use Only DO Not Attach Compendium DO Not Attach Compendium, Do Not Delete/merge, 14:46:24 Referral plast ic surge on refer ral - L. poste rior scalp cyst. 2024 025 [facility], [address] [place], [place] [address], [address], [place], [address], 10:44:26 gastr oente rolog ist refer ral - Abdom inal pain and bloat ing and lack of appet ite.. Chron ic const ipati on. 2024 025 [facility], [address], [place], [address], 17:20:12 sleep medic ine refer ral - Snori ng and gaspi ng at night 2023 024 manuel [facility], [address], [address], [place], [address], 4 10:02:[address]/di etiti an refer ral 2023 024 manuel Not available 15:29:50 Procedures None recor ded. Surgeries None recor ded. Imaging CT, abdom en + pelvi s, w/o contr ast - Chron ic const ipati on, bloat ing and nause a. Also anrex ia. R/o obstr uctio n. 2024 025 manuel [facility] (Ultrasound), [address], [place], [address], 5 10:52:42 US, breas t, unila teral - R. breas t tende rness and ? irreg ulari ty w/o obvio us mass at 10 o lock and cent of ther breas t. H/o R. breas t biops y. Incre ased risk for breas t cance r. 2024 025 [email or web address] [facility], [address], [place], [address], 5 15:55:32 MAMMO , diagn ostic , unila teral - R. breas t tende rness and ? mass at 10 o'kirstin ck 2 weeks . Incre ased risk for breas t cance r. 2024 025 [email or web address] [facility], [address], [place], [address], 5 15:55:47 Medication Orders topir amate 25 mg table t 2024 025 [facility], [address], [place], [address], 5 09:19:22 Linze ss 72 mcg capsu le 2024 025 [email or web address] [facility], [facility] [place], [address], 5 09:02:03 EpiPe n 2-Ray 0.3 mg/0. 3 mL injec tion, auto- injec tor 2023 [facility], [facility] [place], [address], 4 15:24:[address] 8 mg-90 mg table t,ext ended relea se 2023 [facility], [address] [place] [address], [address], 4 10:59:39 Patient TargetsNo targets recorded. Patient Instructions Encounter Date Encounter Id Patient Instructions Last Modified By Organization Details Last Modified Time 02/21/2024 [id number] snoring: care instructions [email or web address] Not available 02/21/2024 15:24:23 colon cancer screening: care instructions [email or web address] Not available 02/21/2024 15:24:23 starting a weight loss plan: care instructions [email or web address] Not available 02/21/2024 15:24:41 Nutrition Referral and Weight Management Follow-up Information [email or web address] Not available 02/21/2024 15:24:41 06/06/2024 [id number] constipation: care instructions [email or web address] Not available 06/06/2024 09:26:47 anorexia: care instructions [email or web address] Not available 06/06/2024 09:26:48 Reason for Referral Sleep Medicine Referral for Snoring Snoring and gasping at night Referring Physician: Lo [facility], Encounter Date: 02/21/2024 Engineering Associate/dietitian Refer ral for Body mass index 30+ - obesity Referring Physician: Family [facility], Encounter Date: 02/21/2024 Masonry Installer Referral for Constipation Abdominal pain and bloating and lack of appetite.. Chronic constipation. Referring Physician: Lo Roche, Family Medicine, Encounter Date: 06/06/2024 Plastic Surgeon Referral for Cyst of scalp L. posterior scalp cyst. Referring Physician: Tiffany Tony, Internal Medicine, Encounter Date: 07/28/2024 Results Created Date Observation Date Name Description Value Unit Range Abnormal Flag Note LastModifiedBy Organization Detail LastModifiedTime 02/04/20 24 02/04/2024 hemog lobin A1C, finge rstic k A1C 5.8 % 4-6 normal Not Available In-Office Order Internal Use Only DO Not Attach Compendium DO Not Attach Compendium, Do Not Delete/merge, [id number] 02/04/2024 14:41:37 02/04/20 24 02/04/2024 gluco se, finge rstic k, blood Blood Glucose: mg/dl 109 Not Available In-Off ice Order Internal Use Only DO Not Attach Compendium DO Not Attach Compendium, Do Not Delete/merge, [id number] 02/04/2024 14:33:51 06/06/19 25 06/06/2024 TSH+F REE T4 TSH 1.700 uIU/m L 0.450- 4.500 normal Not Available [facility] ([facility]) [address] [place], [address], 06/07/2024 06:08:11 06/06/19 25 06/06/2024 TSH+F REE T4 T4,free(dire ct) 0.87 NG/dL 0.82-1 .77 normal Not Available [facility] ([facility]) [address] [place], [address], 06/07/2024 06:08:11 06/06/19 25 06/06/2024 CBC WITH DIFFE RENTI AL/PL ATELE T WBC 8.3 x10e3 /uL 3.4-10 .8 normal Not Available [facility] ([facility]) [address] [place], [address], 06/07/2024 06:08:12 06/06/19 25 06/06/2024 CBC WITH DIFFE RENTI AL/PL ATELE T RBC 4.59 x10e6 /uL 3.77-5 .28 normal Not Available [facility] ([facility]) [address] [place], [address], 06/07/2024 06:08:12 06/06/19 25 06/06/2024 CBC WITH DIFFE RENTI AL/PL ATELE T hemoglobin 14.0 g/dL 11.1-1 5.9 normal Not Available [facility] ([facility]) [address] [place], [address], 06/07/2024 06:08:12 06/06/19 25 06/06/2024 CBC WITH DIFFE RENTI AL/PL ATELE T hematocrit 41.5 % 34.0-4 6.6 normal Not Available [facility] ([facility]) [address] [place], [address], 06/07/2024 06:08:12 06/06/19 25 06/06/2024 CBC WITH DIFFE RENTI AL/PL ATELE T MCV 90 fL 79-97 normal Not Available [facility] ([facility]) [address] [place], [address], 06/07/2024 06:08:12 06/06/19 25 06/06/2024 CBC WITH DIFFE RENTI AL/PL ATELE T MCH 30.5 pg 26.6-3 3.0 normal Not Available [facility] ([facility]) [address] [place], [address], 06/07/2024 06:08:12 06/06/19 25 06/06/2024 CBC WITH DIFFE RENTI AL/PL ATELE T MCHC 33.7 g/dL 31.5-3 5.7 normal Not Available [facility] ([facility]) [address] [place], [address], 06/07/2024 06:08:12 06/06/19 25 06/06/2024 CBC WITH DIFFE RENTI AL/PL ATELE T RDW 13.3 % 11.7-1 5.4 Not Available [facility] ([facility]) [address] [facility], [place], [address], 06/07/2024 06:08:12 06/06/19 25 06/06/2024 CBC WITH DIFFE RENTI AL/PL ATELE T platelets 179 x10e3 /uL 150-45 0 normal Not Available [facility] ([facility]) [address] [facility], [place], [address], 06/07/2024 06:08:12 06/06/19 25 06/06/2024 CBC WITH DIFFE RENTI AL/PL ATELE T neutrophils 69 % not estab. normal Not Available [facility] ([facility]) [address] [facility], [place], [address], 06/07/2024 06:08:12 06/06/19 25 06/06/2024 CBC WITH DIFFE RENTI AL/PL ATELE T lymphs 20 % not estab. normal Not Available [facility] ([facility]) [address] [facility], [place], [address], 06/07/2024 06:08:12 06/06/19 25 06/06/2024 CBC WITH DIFFE RENTI AL/PL ATELE T monocytes 8 % not estab. normal Not Available [facility] ([facility]) [address] [facility], [place], [address], 06/07/2024 06:08:12 06/06/19 25 06/06/2024 CBC WITH DIFFE RENTI AL/PL ATELE T eos 1 % not estab. normal Not Available [facility] ([facility]) [address] [facility], [place], [address], 06/07/2024 06:08:12 06/06/19 25 06/06/2024 CBC WITH DIFFE RENTI AL/PL ATELE T basos 1 % not estab. normal Not Available [facility] ([facility]) [address] [place], [address], 06/07/2024 06:08:12 06/06/19 25 06/06/2024 CBC WITH DIFFE RENTI AL/PL ATELE T immature cells INTERNET SITE DESIGNER Not Available [facility] ([facility]) [address] [place], [address], 06/07/2024 06:08:12 06/06/19 25 06/06/2024 CBC WITH DIFFE RENTI AL/PL ATELE T neutrophils (absolute) 5.8 x10e3 /uL 1.4-7. 0 normal Not Available [facility] ([facility]) [address] [place], [address], 06/07/2024 06:08:12 06/06/19 25 06/06/2024 CBC WITH DIFFE RENTI AL/PL ATELE T lymphs (absolute) 1.6 x10e3 /uL 0.7-3. 1 normal Not Available [facility] ([facility]) [address] [place], [address], 06/07/2024 06:08:12 06/06/19 25 06/06/2024 CBC WITH DIFFE RENTI AL/PL ATELE T monocytes(ab solute) 0.6 x10e3 /uL 0.1-0. 9 normal Not Available [facility] ([facility]) [address] [place], [address], 06/07/2024 06:08:12 06/06/19 25 06/06/2024 CBC WITH DIFFE RENTI AL/PL ATELE T eos (absolute) 0.1 x10e3 /uL 0.0-0. 4 normal Not Available [facility] ([facility]) [address] [place], [address], 06/07/2024 06:08:12 06/06/19 25 06/06/2024 CBC WITH DIFFE RENTI AL/PL ATELE T baso (absolute) 0.1 x10e3 /uL 0.0-0. 2 normal Not Available [facility] ([facility]) [address] [facility], [place], [address], 06/07/2024 06:08:12 06/06/19 25 06/06/2024 CBC WITH DIFFE RENTI AL/PL ATELE T immature granulocytes 1 % not estab. Not Available [facility] ([facility]) [address] [facility], [place], [address], 06/07/2024 06:08:12 06/06/19 25 06/06/2024 CBC WITH DIFFE RENTI AL/PL ATELE T immature grans (abs) 0.1 x10e3 /uL 0.0-0. 1 Not Available [facility] ([facility]) [address] [facility], [place], [address], 06/07/2024 06:08:12 06/06/19 25 06/06/2024 CBC WITH DIFFE RENTI AL/PL ATELE T NRBC INTERNET SITE DESIGNER Not Available [facility] ([facility]) [address] [facility], [place], [address], 06/07/2024 06:08:12 06/06/19 25 06/06/2024 CBC WITH DIFFE RENTI AL/PL ATELE T hematology comments: INTERNET SITE DESIGNER Not Available [facility] ([facility]) [address] [place], [address], 06/07/2024 06:08:12 06/06/19 25 06/06/2024 COMP. METAB OLIC PANEL (14) glucose 96 mg/dL 70-99 normal Not Available [facility] ([facility]) [address] [place], [address], 06/07/2024 06:08:13 06/06/19 25 06/06/2024 COMP. METAB OLIC PANEL (14) BUN 11 mg/dL 6-24 normal Not Available [facility] ([facility]) [address] [facility] [place], [address], 06/07/2024 06:08:13 06/06/19 25 06/06/2024 COMP. METAB OLIC PANEL (14) creatinine 0.71 mg/dL 0.57-1 .00 normal Not Available [facility] ([facility]) [address] [facility] [place], [address], 06/07/2024 06:08:13 06/06/19 25 06/06/2024 COMP. METAB OLIC PANEL (14) eGFR 100 mL/mi n/1.7 3 >59 normal Not Available [facility] ([facility]) [address] [facility], [place], [address], 06/07/2024 06:08:13 06/06/19 25 06/06/2024 COMP. METAB OLIC PANEL (14) BUN/creatini ne ratio 15 9-23 normal Not Available [facility] ([facility]) [address] [facility] [place], [address], 06/07/2024 06:08:13 06/06/19 25 06/06/2024 COMP. METAB OLIC PANEL (14) sodium 143 mmol/ L 134-14 4 normal Not Available [facility] ([facility]) [address] [place] [place], [address], 06/07/2024 06:08:13 06/06/19 25 06/06/2024 COMP. METAB OLIC PANEL (14) potassium 4.0 mmol/ L 3.5-5. 2 normal Not Available [facility] ([facility]) [address] [facility] [place], [address], 06/07/2024 06:08:13 06/06/19 25 06/06/2024 COMP. METAB OLIC PANEL (14) chloride 101 mmol/ L 96-106 normal Not Available [facility] ([facility]) [address] [facility] [place], [address], 06/07/2024 06:08:13 06/06/19 25 06/06/2024 COMP. METAB OLIC PANEL (14) carbon dioxide, total 27 mmol/ L 20-29 normal Not Available [facility] ([facility]) [address] [facility] [place], [address], 06/07/2024 06:08:13 06/06/19 25 06/06/2024 COMP. METAB OLIC PANEL (14) calcium 9.8 mg/dL 8.7-10 .2 normal Not Available [facility] ([facility]) [address] [facility] [place], [address], 06/07/2024 06:08:13 06/06/19 25 06/06/2024 COMP. METAB OLIC PANEL (14) protein, total 6.7 g/dL 6.0-8. 5 normal Not Available [facility] ([facility]) [address] [facility] [place], [address], 06/07/2024 06:08:13 06/06/19 25 06/06/2024 COMP. METAB OLIC PANEL (14) albumin 4.6 g/dL 3.8-4. 9 normal Not Available [facility] ([facility]) [address] [facility] [place], [address], 06/07/2024 06:08:13 06/06/19 25 06/06/2024 COMP. METAB OLIC PANEL (14) globulin, total 2.1 g/dL 1.5-4. 5 Not Available [facility] ([facility]) [address] [place], [address], 06/07/2024 06:08:13 06/06/19 25 06/06/2024 COMP. METAB OLIC PANEL (14) bilirubin, total 0.5 mg/dL 0.0-1. 2 normal Not Available [facility] ([facility]) [address] [place], [address], 06/07/2024 06:08:13 06/06/19 25 06/06/2024 COMP. METAB OLIC PANEL (14) alkaline phosphatase 79 IU/L 44-121 normal Not Available [facility] ([facility]) [address] [place], [address], 06/07/2024 06:08:13 06/06/19 25 06/06/2024 COMP. METAB OLIC PANEL (14) AST (SGOT) 39 IU/L 0-40 normal Not Available [facility] ([facility]) [address] [place] [place], [address], 06/07/2024 06:08:13 06/06/19 25 06/06/2024 COMP. METAB OLIC PANEL (14) ALT (SGPT) 44 IU/L 0-32 above high normal Not Available [facility] ([facility]) [address] [facility] [place], [address], 06/07/2024 06:08:13 06/06/19 25 06/06/2024 LIPID PANEL cholesterol, total 168 mg/dL 100-19 9 normal Not Available [facility] ([facility]) [address] [facility] [place], [address], 06/07/2024 06:08:15 06/06/19 25 06/06/2024 LIPID PANEL triglyceride s 215 mg/dL 0-149 above high normal Not Available [facility] ([facility]) [address] [facility] [place], [address], 06/07/2024 06:08:15 06/06/19 25 06/06/2024 LIPID PANEL HDL cholesterol 41 mg/dL >39 normal Not Available [facility] ([facility]) [address] [facility] [place], [address], 06/07/2024 06:08:15 06/06/19 25 06/06/2024 LIPID PANEL VLDL cholesterol silvia 36 mg/dL 5-40 Not Available [facility] ([facility]) [address] [facility], [place], [address], 06/07/2024 06:08:15 06/06/19 25 06/06/2024 LIPID PANEL LDL chol calc ([facility]) 91 mg/dL 0-99 Not Available [facility] ([facility]) [address] [facility], [place], [address], 06/07/2024 06:08:15 06/06/19 25 06/06/2024 LIPID PANEL LDL calc comment: INTERNET SITE DESIGNER Not Available [facility] ([facility]) [address] [facility], [place], [address], 06/07/2024 06:08:15 09/12/19 25 09/11/2024 TISSU E EXAM .note See Note Origi nal Order ing Provi jina: NOEL VILLEDA [facility] - [address], [address], [place] [address] Not Available [address], [address], 09/12/2024 12:49:41 09/12/19 25 09/11/2024 TISSU E EXAM final diagnosis A. Small Intest ine, Duoden um, biopsi es: - Duode nal mucos a with prese rved villi and no speci fic patho logic puentes es. - Negat desmond for incre ased intra epith elial lymph ocyte s. B. Stoma ch, gastr ic biops ies: - Gastr ic antra l mucos a with mild react desmond puentes es. - Gastr ic oxynt ic mucos a with no speci fic patho logic puentes es. - No Helic obact er pylor i organ isms are morph ologi bree ident ified . Elect martín rodriguez d by Samanta Torres MD on 2024 at 12:45 PM Not Available [address], [address], 09/12/2024 12:49:41 09/12/19 25 09/11/2024 TISSU E EXAM gross description A. Small Intest ine, Duoden um, biopsi es: Label ed duod enum biops y . Recei yanni in forma joana are five irreg ular burt mucos al tissu e fragm ents, rangi ng from 0.1 cm to 0.3 cm in great est dimen enedelia, which are wrapp ed in paper and submi tted in toto in one casse tte, five piece s, multi ple level s on one slide . B. Stoma ch, gastr ic biops ies: Label ed stom ach gastr ic . Recei yanni in forma joana are four irreg ular burt mucos al tissu e fragm ents, each measu ring appro ximat tylor 0.3 cm in great est dimen enedelia, which are wrapp ed in paper and submi tted in toto in one casse tte, four piece s, multi ple level s on one slide . VIKTOR Not Available [address], [address], 09/12/2024 12:49:41 09/12/19 25 09/11/2024 TISSU E EXAM disclaimer Unles s other fraga speci fied, all tissu e is 10% NB forma joana fixed and paraf fin embed ded. Not Available [address], [address], 09/12/2024 12:49:41 05/25/19 25 05/25/2024 US, breas t, limit ed PROCED URE: MM Digita l Mammo Unilat Right, US Breast Right Limite d INDICA TION: Right breast tender ness and possib le mass in the 10:00 axis COMPAR PATTIE: Multip le prior mammog isac most recent ly dated 024 TECHNI QUE: Digita l diagno stic mammog jigna of the right breast consis ting of full field 3-D Tomosy nthesi s views in the CC and MLO projec tions. Comput er-aid ed detect ion (CAD) was utiliz ed in the interp retati on of this study. DENSIT Y: There are scatte red areas of fibrog landul ar densit y. FINDIN GS: No eviden ce of suspic ious mass, suspic ious cluste ring of microc alcifi cation , syed ectura l distor tion, or second alphonso sign of malign chantel. Tissue marker is seen in the karson medial ly. Target ed ultras ound evalua tion was perfor [facility] ed in the 10-12 o'cloc k axis encomp assing the area of clinic al concer n. No cystic or solid abnorm ality is seen within the imaged portio n of the right breast . IMPRES ENEDELIA: No mammog raphic eviden ce of malign chantel. No sonogr aphic abnorm ality corres pondin g to the area of clinic al concer n indica corine by the darío hdez. Furthe r manage ment should be based upon clinic al criter ia. Lack of an imagin g correl ate should not deter or delay biopsy of a clinic ally suspic ious palpab le findin g. RECOMM ENDATI ON: Clinic al follow -up and manage ment BI-RAD S: 1 (Negat desmond) Lay letter mailed to darío hdez WSN: [id number] Orderi ng Physic michael: Felipe Tony Dictat ed By: Eloy Kennedy rd, Jr, MD Dictat ed Date/T laura: 12:24 p Review ed By: Eloy Kennedy rd, Jr, MD Signed By: Eloy Kennedy rd, Jr, MD Signed Date/T laura: 12:24 pm Transc ribed By: CANDICE Transc ribed Date/T laura: 11:53 am Darío hdez Class: Outpat ient [email or web address] [facility] (Outpt Imaging) [address] [facility], [place], [address], 05/26/2024 08:50:43 05/25/19 25 05/25/2024 mm digit al mammo unila t right PROCED URE: MM Digita l Mammo Unilat Right, US Breast Right Limite d INDICA TION: Right breast tender ness and possib le mass in the 10:00 axis COMPAR PATTIE: Multip le prior mammog isac most recent ly dated 024 TECHNI QUE: Digita l diagno stic mammog jigna of the right breast consis ting of full field 3-D Tomosy nthesi s views in the CC and MLO projec tions. Comput er-aid ed detect ion (CAD) was utiliz ed in the interp retati on of this study. DENSIT Y: There are scatte red areas of fibrog landul ar densit y. FINDIN GS: No eviden ce of suspic ious mass, suspic ious cluste ring of microc alcifi cation , syed ectura l distor tion, or second alphonso sign of malign chantel. Tissue marker is seen in the karson medial ly. Target ed ultras ound evalua tion was perfor [facility] ed in the 10-12 o'cloc k axis encomp assing the area of clinic al concer n. No cystic or solid abnorm ality is seen within the imaged portio n of the right breast . IMPRES ENEDELIA: No mammog raphic eviden ce of malign chantel. No sonogr aphic abnorm ality corres pondin g to the area of clinic al concer n indica corine by the darío borja Furthe r manage ment should be based upon clinic al criter ia. Lack of an imagin g correl ate should not deter or delay biopsy of a clinic ally suspic ious palpab le findin g. RECOMM ENDATI ON: Clinic al follow -up and manage ment BI-RAD S: 1 (Negat desmond) Lay letter mailed to darío hdez WSN: [id number] Orderi ng Physic michael: Felipe Tony Dictat ed By: Eloy Kennedy rd, Jr, MD Dictat ed Date/T laura: 12:24 pm Review ed By: Eloy Kennedy rd, Jr, MD Signed By: Eloy Kennedy rd, Jr, MD Signed Date/T laura: 12:24 pm Transc ribed By: CSB Transc riptio n Date/T laura: 11:53 am Birads : Patien t Class: Outpat ient [email or web address] [facility] (Outpt Imaging) [address], [place], [address], 05/26/2024 08:50:25 05/25/1905/25/2024 MAMMO , diagn ostic , unila teral No observ ation record ed. [facility] [address], [place], [address], 05/25/2024 12:59:11 06/09/19 25 06/08/2024 CT, abdom en + pelvi s, w/o contr ast CT Abd/Pe lvis W/O Contra st Reason : K59.00 CONSTI PATION S R O OBSTRU CTION; Clinic al Questi on(s): Other: TECHNI QUE: Spiral CT throug h the abdome n and pelvis withou t IV contra st format corine in 3 planes . This study was perfor med withou t oral contra st. Weight -based protoc ol using automa tic tube modula tion was used to optimi ze exposu re parame ters. CTDIvo l Body: 24.06 mGy, DLP Body: 1239 mGy*cm . COMPAR PATTIE: 024 FINDIN GS: The heart is normal in size. There is no perica rdial effusi on. A calcif ied granul quincy within the left lower lobe is presen t. The liver is slight ly decrea sed in attenu ation, likely second alphonso to steato sis. No masses are presen t. The gallbl adder is surgic ally absent . The spleen , pancre as, and adrena l glands are unrema rkable . The kidney s are normal in morpho logy. No cysts, masses , or calcul i are seen. The bladde r is partia lly disten ded and grossl y unrema rkable . A fibroi d uterus is presen t. The stomac h, small bowel, and append ix are unrema rkable . The colon is normal in course and calibe r. There is no obstru ction. There is no free air, free fluid, or lympha denopa thy. The osseou s struct ures are unrema rkable . IMPRES ENEDELIA: Unrema rkable examin ation. WSN: [id number] Orderi ng Physic michael: Lo Barnett Dictat ed By: Nickie Vu MD Dictat ed Date/T laura: 9:05 am Review ed By: Nickie Vu MD Signed By: Nickie Vu MD Signed Date/T laura: 9:05 am Transc ribed By: CSB Transc ribed Date/T laura: 9:03 am Patien t Class: Outpat ient [facility] (Outpt Imaging) [address] [place], [address], 06/09/2024 10:47:52 09/12/19 colon oscop y No observ ation record ed. [address], [address], 09/11/2024 10:36:17 09/12/19 25 colon oscop y No observ ation record ed. [address], [address], 09/11/2024 10:36:44 09/13/19 25 09/04/2024 sleep study , diagn ostic (PROC ) No observ ation record ed[facility] [address] [place], [address], 09/12/2024 20:11:08 Result Notes None recorded. Problems Name Problem SNOMED Code Status Onset Date Resolution Date Notes Provider Name and Address Organization Details Recorded Time Abdomina l pain 85975805 Completed 200812/05/2013 RECORDED 10/18/19 09 12:00PM BY LO TOMLIN MD, ANNOTATI ON/ADDEN DUM Lo Roche MD [address] [facility] [address] [facility], [place], [address] , [facility] 6 07:05:33 Acute pharyngi tis [id number] Completed 201112/05/2013 IMPRESSI ON: RAPID STREP NEGATIVE . HX OF ALLERGIE S, COULD BE ALLX RHINITIS SXS VS VIRAL. ADVISED RE USE OF DAILY ANTIHIST AMINE, OTC ANALGESI C. REST, FLUIDS AND SALT WATER GARGLES. IF NO IMPROVEM ENT AFTER SEVERAL DAYS TO CALL OFFICE, SOONER IF SXS WORSEN.; RECORDED 04/05/20 12 9:13AM BY CARLY THOMAS ON/ADDEN JAMEI Javed, [facility] 6 11:28:34 Acute sinusiti s 41298713 Completed 201112/05/2013 RECORDED 04/05/20 12 9:12AM BY CARLY THOMAS ON/ANSONEN JAMIE Javed, [facility] 6 11:28:26 Chronic allergic conjunct ivitis 03436410 Completed 201112/05/2013 RECORDED 04/05/20 12 9:13AM BY CARLY THOMAS ON/ADDEN DONN Roche MD [address] [address], [place], [address] , [facility] 6 07:05:32 Allergic rhinitis 10299458 Completed 200712/05/2013 RECORDED 01/10/20 08 3:40PM BY CARLY VILLALPANDO ON/TONI Roche MD [address] [address], [place], [address] , [facility] 6 07:05:33 Patient status finding [id number] Completed 201212/05/2013 RECORDED 04/25/20 13 3:09PM BY AAMIR SOTO MA, CARLY ON/TONI Roche MD [address] [facility] [address], [place], [address] , [facility] 6 07:05:33 Asthma [id number] Active 2013 HAD A POSITIVE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 Available Not Available Not Available chlorthal idone 25 mg tablet TAKE ONE TABLET BY MOUTH EVERY DAY 04/14 completed Not Available Not Available Not Available amlodipin e 5 mg tablet Take 1 tablet every day by oral route for 90 days. 04/29 completed Not Available Not Available Not Available acetamino phen 500 mg tablet TAKE TWO TABLETS BY MOUTH FOUR TIMES A DAY NEEDED FOR PAIN 02/03 completed Not Available Not Available Not Available triamcino lone acetonide 0.1 % topical cream APPLY A THIN LAYER TO THE AFFECTED AREA(S) BY TOPICAL ROUTE 2 TIMES PER DAY 12/10 completed Not Available Not Available Not Available Medrol 4 mg tablet DAILY 04/11 completed RECORDED 05/04/20 12 10:24AM BY GILLIAN JONAS PA-C, MEDICATI ON AUTO-STEPHENIE CTIVATIO N;TAKE DIRECTED ON PACKAGE Not Available Not Available Not Available Zantac 150 mg tablet Take twice a day by oral route. 01/10 completed Not Available Not Available Not Available oxycodone -acetamin ophen 5 mg-325 mg tablet EVERY 4 HOURS PRN active Not Available Not Available No t Available amoxicill in 875 mg tablet one po TWO TIMES DAILY 07/09 completed RECORDED 04/05/20 12 9:11AM BY GILLIAN JONAS PA-C, MEDICATI ON AUTO-STEPHENIE CTIVATIO N; Not Available Not Available Not Available hydromorp herminio 2 mg tablet 09/14 completed Not Available Not Available Not Available citalopra m 20 mg tablet TAKE 1.5 TABLETS BY MOUTH ONCE DAILY 2024 active Not Available Not Available Not Avai lable amitripty line 10 mg tablet Take 2 tablets every day by oral route at bedtime for 30 days. 07/09 completed Not Available Not Available Not Available lorazepam 2 mg tablet 01/10 completed Not Available Not Available Not Available bisacodyl 10 mg rectal supposito ry Insert 10 mg by rectal route. 01/10 completed Not Available Not Available Not Available cephalexi n 500 mg capsule TAKE 1 CAPSULE BY MOUTH 3 TIMES A DAY FOR 7 DAYS 02/03 completed Not Available Not Available Not Available pantopraz ole 40 mg tablet,de layed release Take 40 mg by oral route. 01/10 completed Not Available Not Available Not Available olopatadi ne 0.1 % eye drops 2 TIMES A DAY FOR EYE ALLERGIE S 09/22 completed RECORDED 09/23/19 12 11:02AM BY AAMIR SOTO [place], OFFICE VISIT; Not Available Not Available Not Available lisinopri l 10 mg tablet TAKE two TABLETs BY MOUTH EVERY DAY 03/16 completed Not Available Not Available Not Available prednison e 50 mg tablet Take 1 tablet every day by oral route for 5 days. 01/10 completed Not Available Not Available Not Available polymyxin B sulfate 10,000 unit-trim ethoprim 1 mg/mL eye drops QID 05/20 completed RECORDED 05/20/19 10 4:18PM BY CLIFFORD YEE ON AUTO-STEPHENIE CTIVATIO N; Not Available Not Available Not Available valsartan 320 mg tablet TAKE ONE TABLET BY MOUTH EVERY DAY 04/14 completed Not Available Not Available Not Available docusate sodium 100 mg capsule Take 1 capsule every day by oral route. 04/04 completed Not Available Not Available Not Available gabapenti n 300 mg capsule 03/29 completed Not Available Not Available Not Available monteluka st 10 mg tablet TAKE ONE TABLET BY MOUTH AT BEDTIME 02/03 completed Not Available Not Available Not Available lorazepam 1 mg tablet TAKE ONE TABLET BY MOUTH TWICE A DAY NEEDED FOR 5 DAYS 08/30 completed Not Available Not Available Not Available epinephri ne 0.3 mg/0.3 mL injection , auto-inje ctor USE DIRECTED active Not Available Not Available No t Available albuterol sulfate HFA 90 mcg/actua tion aerosol inhaler INHALE 2 PUFFS INTO THE LUNGS EVERY DAY NEEDED active Not Available Not Available No t Available fluticaso ne propionat e 50 mcg/actua tion nasal spray,sarah pension Inhale 2 sprays every day by intranas al route each nostril for 30 days. active Not Available Not Available No t Available mometason e 0.1 % topical cream DAILY 09/29 completed RECORDED 10/05/19 12 11:07AM BY CLIFFORD THOMAS ON AUTO-STEPHENIE CTIVATIO N;APPLY SPARINGL Y TO AFFECTED AREAS Not Available Not Available Not Available diazepam 5 mg tablet TAKE 1 OR 2 TABLETS BY MOUTH ONE HOUR PRIOR TO PROCEDUR E 02/03 completed Not Available Not Available Not Available amoxicill in 875 mg-potass ium clavulana te 125 mg tablet TAKE ONE TABLET BY MOUTH TWICE A DAY FOR 7 DAYS 02/03 completed Not Available Not Available Not Available oxycodone 5 mg tablet TAKE 1 TO 2 TABLETS BY MOUTH EVERY 4 TO 6 HOURS NEEDED FOR PAIN 12/25 completed Not Available Not Available Not Available valsartan 160 mg tablet TAKE 1 TABLET BY MOUTH DAILY DIRECTED 09/12 completed Not Available Not Available Not Available Bactrim DS 800 mg-160 mg tablet Take 1 tablet every 12 hours by oral route for 7 days. 04/20 completed Not Available Not Available Not Available albuterol (refill) 90 mcg/actua tion aerosol inhaler Q 4HR/PRN 01/03 completed RECORDED 01/08/20 09 9:41AM BY GERARD BUSH, MEDICATI ON AUTO-STEPHENIE CTIVATIO N; Not Available Not Available Not Available enoxapari n 40 mg/0.4 mL subcutane ous syringe INJECT 0.4 ML (1 SYRINGE) INTO THE SKIN DAILY FOR 28 DAYS 01/10 completed Not Available Not Available Not Available cyclobenz aprine 5 mg tablet 12/29 completed Not Available Not Available Not Available duloxetin e 20 mg capsule,d elayed release DIRECTED 03/07 completed RECORDED 04/24/20 13 6:42AM BY LO TOMLIN MD, MEDICATI ON AUTO-STEPHENIE CTIVATIO N;TAKE 1 DAILY FOR 2 WEEKS THEN 1 EVERY OTHER DAY FOR 2 WEEKS THEN STOP Not Available Not Available Not Available duloxetin e 60 mg capsule,d elayed release TAKE ONE CAPSULE BY MOUTH EVERY DAY 12/10 completed Not Available Not Available Not Available docusate sodium 100 mg 1, cap by mouth 2 times a day #60 01/10 completed Not Available Not Available Not Available Flonase Q NARES QAM 01/09 completed RECORDED 01/10/20 08 4:45PM BY KENNETH CHAPARRO, OFFICE VISIT; Not Available Not Available Not Available Amoxil TWO TIMES DAILY 03/03 completed RECORDED 04/12/20 09 2:14PM BY LO TOMLIN MD, MEDICATI ON AUTO-STEPHENIE CTIVATIO N; Not Available Not Available Not Available Miralax 17 g. 01/10 completed Not Available Not Available Not Available valsartan 320 mg-hydroc hlorothia zide 25 mg tablet TAKE 1 TABLET BY MOUTH ONCE DAILY 2024 active Not Available Not Available Not Avai lable Aerochamb er Plus Flow-Vu active Not Available Not Available Not Available Xarelto 10 mg tablet 09/19 completed Not Available Not Available Not Available EpiPen 2-Ray 0.3 MG IM IN THIGH 04/06 completed RECORDED 04/06/20 12 10:38AM BY GILLIAN JONAS PA-C, MEDICATI ON AUTO-STEPHENIE CTIVATIO N; Not Available Not Available Not Available Linzess 145 mcg capsule Take 1 capsule every day by oral route for 90 days. 10/29 completed Not Available Not Available Not Available Eliquis 2.5 mg tablet Take by oral route for 30 days. 12/25 completed Not Available Not Available Not Available potassium chloride ER 20 mEq tablet,ex tended release TAKE 1 TABLET BY MOUTH EVERY DAY 04/14 completed hold Not Available Not Available Not Available Contrave 8 mg-90 mg tablet,ex tended release active Not Available Not Available Not Available acetamino phen 325 mg capsule Take 1 capsule every 6 hours by oral route as needed. 04/01 completed Not Available Not Available Not Available Linzess 72 mcg capsule TAKE ONE CAPSULE BY MOUTH EVERY DAY FOR CONSTIPA TION 07/28 completed Not Available Not Available Not Available Fluvirin 1405-6956 (PF) 45 mcg(15 mcg x3)/0.5 mL intramusc ular syringe ADM 0.5ML IM UTD 12/29 completed Not Available Not Available Not Available cannabidi ol (CBD) oral oil Take 1 mL as needed by oral route. 12/18 completed Not Available Not Available Not Available Wixela Inhub 250 mcg-50 mcg/dose powder for inhalatio n INHALE ONE PUFF BY MOUTH TWICE A DAY DIRECTED 12/25 completed Not Available Not Available Not Available Flucelvax Quad 60 mcg (15 mcg x 4)/0.5 mL intramusc ular susp VACCINAT ION ADMINIST ERED BY [employer] ST 07/05 completed Not Available Not Available Not Available Flucelvax Quad (PF) 60 mcg (15 mcg x 4)/0.5 mL IM syringe VACCINAT ION ADMINIST ERED BY [facility] ST 04/04 completed Not Available Not Available Not Available Paxlovid 300 mg (150 mg x 2)-100 mg tablets in a dose pack TAKE THREE TABLETS BY MOUTH TWICE A DAY FOR 5 DAYS 06/09 completed Not Available Not Available Not Available Mounjaro 2.5 mg/0.5 mL subcutane ous pen injector Inject 2.5 mg every week by subcutan eous route, for weight loss. 05/19 completed Not Available Not Available Not Available Vitals Date Recorded Body height Heart rate Oxygen saturation Oxygen saturation in Arterial blood by Pulse oximetry Body temperature Systolic blood pressure Diastolic blood pressure Provider Name and Address Organization Details Last Updated DateTime 4 170.18 cm 85 /min 95 % 95 % 97.9 [degF] 136 mm[Hg] 84 mm[Hg] Leslie Rider MA [facility] 4 14:34:54 Date Recorded Body height Heart rate Oxygen saturation Oxygen saturation in Arterial blood by Pulse oximetry Body temperature Body mass index (BMI) Body weight Systolic blood pressure Diastolic blood pressure Provider Name and Address Organization Details Last Updated DateTime 4 170.18 cm 86 /min 97 % 97 % 97.6 [degF] 33.6 kg/m2 63449.5 7 g 115 mm[Hg] 75 mm[Hg] Brissa Vidal LPN [facility] 4 14:29:03 Date Recorded Body height Heart rate Oxygen saturation Oxygen saturation in Arterial blood by Pulse oximetry Body temperature Systolic blood pressure Diastolic blood pressure Provider Name and Address Organization Details Last Updated DateTime 5 170.18 cm 87 /min 96 % 96 % 97.2 [degF] 120 mm[Hg] 77 mm[Hg] Leslie Rider MA [facility] 5 09:34:08 Date Recorded Body height Body mass index (BMI) Body weight Heart rate Oxygen saturation Oxygen saturation in Arterial blood by Pulse oximetry Body temperature Systolic blood pressure Diastolic blood pressure Provider Name and Address Organization Details Last Updated DateTime 5 170.18 cm 32.7 kg/m2 10008.8 1 g 76 /min 98 % 98 % 97.2 [degF] 128 mm[Hg] 74 mm[Hg] Leslie Rider MA [facility] 5 09:04:36 Date Recorded Body height Heart rate Oxygen saturation Oxygen saturation in Arterial blood by Pulse oximetry Body temperature Systolic blood pressure Diastolic blood pressure Provider Name and Address Organization Details Last Updated DateTime 5 170.18 cm 76 /min 97 % 97 % 98 [degF] 105 mm[Hg] 70 mm[Hg] Brissa Vidal LPN [facility] 5 08:59:59 Social History Question Answer Notes LastModified by Organizat ion Details LastModified Time Tobacco Smoking Status Former Smoker quit 2000 Not Available [employer] 03/19/2020 03:36:37 Do You Have An Advance Directive? No Information not available 03/28/2021 What Is Your Level Of Alcohol Consumption? None [id number] Information not available 03/19/2020 Is Blood Transfusion Acceptable In An Emergency? Yes [id number] Information not available 03/19/2020 What Is Your Level Of Caffeine Consumption? Moderate 2/week [email or web address] Information not available 03/28/2021 How Much Tobacco Do You Chew? None [id number] Information not available 03/19/2020 In The 14 Days Before Symptom Onset, Have You Had Close Contact With A Laboratory-confi rmed COVID-19 While That Case Was Ill? No Information not available 03/28/2021 In The 14 Days Before Symptom Onset, Have You Had Close Contact With A Person Who Is Under Investigation For COVID-19 While That Person Was Ill? No Information not available 03/28/2021 Have You Been To An Area Known To Be High Risk For COVID-19? No Information not available 03/28/2021 Are You Currently Employed? Yes [id number] Information not available 03/19/2020 What Type Of Diet Are You Following? GLUTENFREE [id number] Information not available 03/19/2020 Which Illicit Or Recreational Drugs Have You Used? None [id number] Information not available 03/19/2020 Do You Or Have You Ever Used E-cigarettes Or Vape? 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 16+yearssince lastcigarette Information not available 04/04/2020 Live Alone Or With Others? With Others Information not available 07/07/2023 Do You Take Precautions To Prevent Distracted Driving? Yes Information not available 10/17/2015 How Often Do You Need To Have Someone Help You When You Read Instructions, Pamphlets, Or Other Written Material From Your Doctor Or Pharmacy? Sometimes Information not available 03/28/2021 Have You Served In The ? No [email or web address] Information not available 06/16/2017 Have You Or Anyone In Your Household Had Any Of The Following Symptoms In The Last 14 Days: Sore Throat, Cough, Chills, Body Aches For Unknown Reasons, Shortness Of Breath For Unknown Reasons, Loss Of Smell, Loss Of Taste, Fever At Or Greater Than 100 Degrees Fahrenheit? No [email or web address] Medical Systemsultzki Information not available 01/11/2020 Are You Or Anyone In Your Household A Health Care Provider Or Emergency Responder? No SocialStayki Information not available 01/11/2020 To The Best Of Your Knowledge Have You Been In Close Proximity To Any Individual Who Tested Positive For COVID-19? No [email or web address] Information not available 01/11/2020 *AWV ONLY* Are You Presently Prescribed Opioid Medication By PCP Or Specialist? If YES -Provider Assess The Benefit For Other, Non-opioid Pain Therapies Instead, Even If The Patient Does Not Have OUD But Is Possibly At Risk. No Information not available 03/28/2021 Have You Recently Traveled To A COVID-19 High Risk Area Or Gathering In The Last 10 Days? No Information not available 03/28/2021 What Was The Date Of Your Most Recent Tobacco Screening? 02/21/2024 [email or web address] Information not available 02/21/2024 How Many Children Do You Have? 4 3 Sons (1 Adopted) And 1 Daughter [id number] Information not available 03/19/2020 What Is Your Current Pack Years? 30ormorepacky ears Information not available 03/28/2021 Do You Use Protection During Sex? No [id number] Information not available 03/19/2020 Do You Use Your Seat Belt Or Car Seat Routinely? Yes Information not available 03/28/2021 Seat Belts Used Routinely Yes Information not available 03/28/2021 Are You Sexually Active? Yes [id number] Information not available 03/19/2020 Smoke Alarm In Home Yes Information not available 03/28/2021 Do You Have Smoke And Carbon Monoxide Detectors In Your Home? Yes Information not available 03/28/2021 At What Age Did You Start Smoking Tobacco? 17 Information not available 03/28/2021 Are You Passively Exposed To Smoke? No [email or web address] Information not available 12/11/2015 Do You Or Have You Ever Used Smokeless Tobacco? Never Used Smokeless Tobacco Information not available 04/04/2020 How Much Tobacco Do You Smoke? 1 PPD Information not available 03/28/2021 Do You Use Any Illicit Or Recreational Drugs? No Information not available 03/28/2021 Do You Use Sunscreen Routinely? Yes Information not available 03/28/2021 How Many Years Have You Smoked Tobacco? 22 Information not available 03/28/2021 Do You Or Have You Ever Used Any Other Forms Of Tobacco Or Nicotine? No Information not available 03/28/2021 Sex: Unknown Functional Status Question Answer Note LastModified by Organizat ion Details LastModified Time Are you able to walk? YESWOREST Information not available 03/28/2021 Are you able to care for yourself? Yes [id number] Information not available 03/19/2020 What is your exercise level? Moderate walking [id number] Information not available 03/19/2020 Mental Status None recorded. Family History Relationship Description Onset Age of this Age Resolved Age Notes LastModified by Organization Details LastModified Time Mother Well adult 80 no clear etiolo gy. She sudden ly. [email or web address] Not available 02/22/2024 13:00:27 Father Accidental fall 50 deceas ed [email or web address] Not available 02/21/2024 15:01:52 Paternal Uncle Neoplasm of brain stem [email or web address] Not available 03/28 13:23:21 Maternal Grandmother Malignant tumor of breast [email or web address] Not available 07/15 16:15:21 Medical History Condition Response Asthma Y Allergies Y High Cholesterol Y Hypertension Y Gynecological History Statement/Question Response Menses Monthly N If Post Menopausal, Age at Menopause 32 Date of Last Pap Smear 04/28/2018 Most Recent Mammogram 05/25/2024 Obstetrics History GPAL:G 0 P 0 0 0 0 Immunizations Vaccine Type Date Status Note Provider Nam e and Address Organization Details Recorded Time COVID-19, mRNA, LNP-S, PF, 100 mcg/0.5mL dose or 50 mcg/0.25mL dose 1 completed JAMIE Rubin [facility] 05/01/2021 15:11:33 COVID-19, mRNA, LNP-S, PF, 100 mcg/0.5mL dose or 50 mcg/0.25mL dose 1 completed JAMIE Rubin [facility] 05/01/2021 15:11:33 Influenza, split virus, quadrivalent, PF 1 completed JAMIE Rubin [facility] 05/01/2021 15:11:33 Influenza, MDCK, quadrivalent, PF 0 completed JAMIE Rubin [facility] 05/01/2021 15:11:33 Influenza, MDCK, quadrivalent, preservative 9 completed JAMIE Rubin [facility] 05/01/2021 15:11:33 COVID-19, mRNA, LNP-S, PF, 100 mcg/0.5mL dose or 50 mcg/0.25mL dose 1 completed JAMIE Rubin, [facility] 05/01/2021 15:11:33 Influenza, split virus, trivalent, PF 7 completed JAMIE Rubin, [facility] 05/01/2021 15:11:33 Influenza, recombinant, quadrivalent, PF 2 completed JAMIE Tam, [facility] 02/17/2022 14:12:07 Tdap 9 completed JAMIE Tam, [facility] 02/17/2022 14:12:07 Influenza, split virus, quadrivalent, PF 6 completed JAMIE Tam, [facility] 02/17/2022 14:12:08 Influenza, split virus, quadrivalent, PF 3 completed Brissa Vidal LPN null, [facility] 02/21/2024 14:29:16 Tdap 8 completed Ernestina mccarty [facility] 09/11/2019 13:46:26 influenza, seasonal, intradermal, preservative free 3 completed Ernestina mccarty [facility] 09/11/2019 13:46:26 Influenza, split virus, trivalent, PF 4 completed Lo Roche MD [address], [address], [facility] 02/22/2024 12:53:32 Past Encounters Encounter ID Performer Location Encounter Start Date Encounter Closed Date Diagnosis/Indication Diagnosis SNOMED-CT Code Diagnosis ICD10 Code Diagnosis Note [id number] auto[facility] [place] [address] [place] [address] [address] [facility] [place] [address] 12/02/2006 00:00:00 [id number] autoEComm erce [address] [facility] [address] [place] [address] 01/06/2007 00:00:00 [id number] autoEComm erce [address] [facility] [address] [address] [place] [address] 03/14/2007 00:00:00 [id number] autoEComm erce [address] [facility] [address] [address] [place] [address] 09/13/2007 00:00:00 [id number] autoEComm erce [address] [facility] [place] [address] 01/10/2008 00:00:00 [id number] autoEComm erce [address] [facility] [address] [address] [place] [address] 02/22/2008 00:00:00 [id number] autoEComm erce [address] [facility] [address] [place] [address] 07/03/2008 00:00:00 [id number] autoEComm erce [address] [facility] [address] [place] [address] 07/25/2008 00:00:00 [id number] autoEComm erce [address] [facility] [address] [place] [address] 10/17/2008 00:00:00 [id number] autoEComm erce [address] [facility] [address] [place] [address] 12/04/2008 00:00:00 [id number] autoEComm erce [address] [facility] [place] [address] 12/10/2008 00:00:00 [id number] autoEComm erce [address] [facility] [place] [address] 02/21/2009 00:00:00 [id number] autoEComm erce [address] [facility] [place] [address] 05/20/2009 00:00:00 [id number] autoEComm erce [address] [facility] [place] [address] 06/19/2009 00:00:00 [id number] autoEComm erce [address] [place] [address] 09/24/2009 00:00:00 [id number] autoEComm erce [address] [place] [address] 12/24/2009 00:00:00 [id number] autoEComm erce [address] [place] [address] 08/14/2010 00:00:00 [id number] autoEComm erce [address] [facility] [address] [place] [address] 09/29/2010 00:00:00 [id number] autoEComm erce [address] [facility] [address] [place] [address] 09/23/2011 00:00:00 [id number] autoEComm erce [address] [facility] [address] [place] [address] 09/29/2011 00:00:00 [id number] autoEComm erce [address] [facility] [place] [address] 10/06/2011 00:00:00 [id number] autoEComm erce [address] [facility] [address] [place] [address] 01/08/2012 00:00:00 [id number] autoEComm erce [address] [facility] [address] [place] [address] 04/05/2012 00:00:00 [id number] autoEComm erce [address] [facility] [place] [address] 02/07/2013 00:00:00 [id number] autoEComm erce [address] [facility] [address] [place] [address] 04/25/2013 00:00:00 [id number] autoEComm erce [address] [facility] [place] [address] 06/27/2013 00:00:00 [id number] Jaguar Hussein [facility] Main Office [address] [address] [place] [address] 04/13/2014 14:29:17 04/13/2014 15:12:22 Unilateral mastalgia [id number] likely cellulitis . mammo and u/s though in case a primary breast issue. f/u pcp 1 week Cellulitis [id number] [id number] Lo Roche MD Main Office [address] [address] [place] [address] 08/14/2014 12:38:08 08/14/2014 13:18:51 Acute sinusitis 91701009 [id number] Lo Roche MD Main Office [address] [place] [address] [place] [address] 10/02/2014 15:13:41 10/02/2014 16:11:15 Gluten sensitivity 429567902 [id number] Gustavo Luis [facility] Main Office [address] [place] [address] 02/21/2015 08:51:31 02/21/2015 09:24:45 Neoplasm of uncertain behavior of skin 76249321 D48.5 Fatigue 08785165 R53.83 Patient has 4 boys, has recently started school again and is working, feels fatigued but is unsure if this is normal due to how busy she is. Will check blood work. [id number] Johnny Lao MD Main Office [address] [address] [place] [address] 07/31/2015 09:57:38 07/31/2015 11:18:53 Lumbar radiculopathy 324217633 M54.16 Left ? L5 [id number] Tiffany Tony PA-C Main Office [address] [address] [place] [address] 09/17/2015 15:50:21 09/17/2015 16:28:38 Acute pharyngitis 531089188 J02.9 Viral. related to cough and postnasal secretions . Recommend to use nasal saline solution few times daily, take Tylenol for pain and take OTC cough meds. Viral disease 11802117 B 34.9 Increase fluids, rest. 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 ? sensitivit y reaction to insect bite. Will check labs. If symptoms worsen again , will restart Prednisone , but in the mean time she was advised to take Zyrtec 10 mg daily, use topical steroid cream and see dermatolog y FERNANDO. Pt. has Rx for EpiPen on hand . [id number] Lo Roche MD Main Office [address] [address] [place] [address] 12/11/2015 15:28:47 12/11/2015 16:22:46 Adult health examination 025963959 Z00.00 UTD with immunizati ons and mammogram but due for her [employer]TE[employer]CE [employer] exam Essential hypertension 98050848 I10 We will increase her metoprolol from 50 to 100 and see her back in 1 month. If her BP is still running high we will add a diuretic. Pain of hip region 91678 [address] Jack and told her pain was from OA but advil not helping and it continues to be a daily problem. [id number] Lo Roche MD Main Office [address] [address] [place] [address] 02/05/2016 13:40:36 02/05/2016 14:45:09 Essential hypertension 17902003 I10 Her BP came down some with the increased dose of metoprolol but still running high. We will add a diuretic and see her back in 1 month. Needs infl uenza immunization 318981594 Z23 [id number] Lo Roche MD Main Office [address] [address] [place] [address] 03/17/2016 15:36:10 03/17/2016 16:08:18 Essential hypertension 33307053 I10 She will restart the metoprolol and continue the chlorthali done and will follow her BP. We will call her next month to see how here BP is running. She was given a handout on foods that are high in potassium. [id number] Shaye bills MD Main Office [address] [address] [place] [address] 05/12/2016 11:23:33 05/12/2016 11:55:33 Acute sinusitis 10166043 J01.90 new problem for pt and examiner, hydrate, sinus washings, return if not improving Essential hypertension 22049689 I10 on meds nd well controlled , continue meds [id number] Shaye bills MD Main Office [address] [address] [place] [address] 07/09/2016 14:12:07 07/09/2016 14:48:43 Swollen abdomen 38580258 R14.0 severe abdominal distention for 2 weeks, scant BM over the past 2 weeks, ? small bowel obstructio n vs other obstructio n, needs to go to ER for eval, xray and ruleout obstructio n before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
[2024-09-24 15:20] LABS: Alkaline Phosphatase 64 U/L (39-117)
[2024-09-24 15:25] LABS: Influenza A PCR NEGATIVE (Negative); Influenza B PCR NEGATIVE (Negative); Resp Syncy Virus RNA Qual PCR NEGATIVE (Negative); SARS COV2 PCR INHOUSE NEGATIVE (Negative)
--- NOTE | 2024-09-24 15:59 | PC.NURSE ---
20G in RAC placed. Patient currently getting CT. Results pending.
[2024-09-24] MEDS: iohexoL 350 MG/ML 100 ML INFUS..BTL IV (16:02)
[2024-09-24 16:06] VITALS: BP 139/71; PULSE 87; RESP 16; TEMP 37.1; O2SAT 96
[2024-09-24] MEDS: ondansetron HCL 4 MG/2 ML VIAL IVPUSH (16:18)
[2024-09-24] MEDS: diazePAM 5 MG TABLET PO (16:18)
[2024-09-24] MEDS: 0.9 % Sodium Chloride 1,000 ML 999 ML IV (16:18)
[2024-09-24 17:05] LABS: Lipase 45 U/L (8-78)
[2024-09-24 17:48] VITALS: BP 139/71; PULSE 87; RESP 16; TEMP 37.1; O2SAT 96
== END 2024-09-24 17:49 | disposition home or self-care (01) ==
PROVIDERS: Physician Assistant Medical; Emergency Provider Emergency Medicine Emergency Medical Services; PCP Internal Medicine
DX: K42.9 Umbilical hernia without obstruction or gangrene (principal); R10.31 Right lower quadrant pain; M54.50 Low back pain, unspecified; Z03.818 Encounter for observation for suspected exposure to other biological agents ruled out; Z79.899 Other long term (current) drug therapy
CPT/HCPCS: 0241U; 74177; 80053; 81001; 83690; 83735; 85025; 87086; 96374; 99284; J2405; Q9967

== ENCOUNTER → 2024-09-24 15:32 | Outpatient (BNV) | payer BC, SELFPAY | PROVIDERS: Emergency Provider Emergency Medicine Emergency Medical Services; PCP Internal Medicine; Visit Provider Radiology Diagnostic Radiology | DX: R10.9 Unspecified abdominal pain (principal) | CPT/HCPCS: 74177 ==

== ENCOUNTER 2024-11-13 11:32 | Outpatient (AMB) | payer BC, SELFPAY ==
--- NOTE | 2024-11-13 11:31 | MHC.OFFVIS ---
Vital Signs 11/13/24 11:44 Height 5 ft 7 in BMI Reason not done Patient refused/unable BP 117/60 Blood Pressure Location Lt brachial Pulse 73 Intake Visit Reasons: umbilical hernia Intake Note: Patient is seen in office for evaluation of an umbilical hernia. Pt c/o: pain right side of the abdomen and under the belly, radiates to the back, nausea and vomit when eating, does not feel a lump on the umbilical area, gallbladder was removed 10 yrs ago ER/CT: 09/24/24 Medical Administrative Technician Required: No Accompanied by: Self / Same As Patient Allergies morphine (MORPHINE) Allergy (Intermediate, Verified 11/13/24 11:46) HIVES aspirin (ASPIRIN) Allergy (Unknown, Verified 11/13/24 11:46) HIVES celecoxib (Celebrex) Allergy (Unknown, Verified 11/13/24 11:46) swelling of lips/tongue gluten (GLUTEN) Allergy (Unknown, Verified 11/13/24 11:46) UNKNOWN latex (LATEX) Allergy (Unknown, Verified 11/13/24 11:46) HIVES pregabalin (From LYRICA) Allergy (Unknown, Verified 11/13/24 11:46) SWELLING, anaphylaxis Medication List - Last Reconciled 11/13/24 by Melvin Barnett MD albuterol sulfate 90 mcg/actuation 2 puffs inhalation DAILY atorvastatin 40 mg PO DAILY citalopram 30 mg PO DAILY inhalational spacing device (Aerochamber Plus Flow-Vu) As directed peg 3350-electrolytes 236-22.74-6.74 -5.86 gram (GaviLyte-G) mL PO topiramate 25 mg PO DAILY valsartan-hydrochlorothiazide 320-25 mg 1 tab PO DAILY HPI Comments Details: 9-year-old female patient presenting with complaints of abdominal pain mainly in the lower abdomen especially the right side. This began in August of 2024 and occurs intermittently, approximately twice per week. She was initially concerned about appendicitis and subsequently presented to the emergency department for further evaluation. In the emergency department a CT abdomen and pelvis was performed which revealed a small umbilical hernia. Normal appendix was identified. She presents today for further evaluation of the umbilical hernia. The pain is described as sharp and shooting in the lower abdomen without a palpable mass. She has never identified a lump in her umbilicus in denies any significant pain at that site. She has active on a daily basis and currently has the summer off but is still busy around the house with occasional lifting. She denies any nausea, vomiting, fever or chills. Her bowels have been normal as well. [facility] Medical History Allergic rhinitis Asthma Surgical History History of surgery on lower extremity (2022) History of ankle surgery (2019) Hx of tubal ligation Hx of cholecystectomy (2014) Family History Mother Breast cancer Maternal Grandmother Breast cancer Family/Other Brain cancer Paternal Grandmother Stomach cancer Social History Patient Tobacco Use Status: Former Tobacco user Review of Systems Const All systems reviewed & are unremarkable except as noted in HPI and below Physical Exam Vital Signs: Last Vital Signs Pulse 73 11/13/24 11:44 BP 117/60 11/13/24 11:44 Const General: cooperative and no acute distress Nutritional Appearance: well nourished Orientation/consciousness: patient oriented x3 Limitations: no limitations HEENT Head: Yes normocephalic and Yes atraumatic Ears: hearing grossly normal bilaterally Resp Effort & Inspection: normal respiratory effort, no audible wheezes, no cough and no respiratory distress Cardio Jugular venous distension: no JVD GI Inspection: Yes normal to inspection and No distended Palpation (GI): Soft to palpation, nontender, no guarding, not rigid, No hepatosplenomegaly present and no hernias Skin Other: Warm, dry, no rash Neuro General: patient oriented x3 Extrem General: Yes no clubbing, cyanosis or edema Assessment & Plan Assessment & Plan (1) Umbilical hernia: Code(s): K42.9 - Umbilical hernia without obstruction or gangrene Category: Medical Qualifiers: Obstruction and gangrene presence: without obstruction or gangrene Qualified Code(s): K42.9 - Umbilical hernia without obstruction or gangrene Plan 59-year-old female patient presenting with complaints of right lower quadrant abdominal pain subsequent presenting to the emergency department for further evaluation. A CT abdomen and pelvis was negative for appendicitis however a small umbilical hernia was identified. I reviewed the CT abdomen and pelvis in noted a very small umbilical hernia of no clinical significance. On examination she is asymptomatic at the umbilicus. Her abdomen is otherwise benign as well. I recommended observation with no surgical intervention at this time. We reviewed the signs and symptoms of an umbilical hernia and she is welcome to call should the symptoms develop. Coding Level of Care Code New Pt Level 4 (19941) Diagnoses Umbilical hernia without obstruction and without gangrene K42.9 Obstruction and gangrene presence: without obstruction or gangrene
[2024-11-13 11:44] VITALS: BP 117/60; PULSE 73
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
== END 2024-11-13 11:59 | disposition home or self-care (01) ==
LOC: HO.HGS 11:33
PROVIDERS: PCP Internal Medicine; Visit Provider Surgery
DX: K42.9 Umbilical hernia without obstruction or gangrene (principal)
CPT/HCPCS: 99204